=== PATIENT | male | born 1950 | race Caucasian/White ===

== ENCOUNTER 2021-07-25 19:55 | Inpatient (IN) | payer OTHER ==
[2021-07-25] MEDS ORDERED: SODIUM CHLORIDE 0.9% 500 ML INFUS.BAG IV ONE (20:21)
[2021-07-25] MEDS ORDERED: ACETAMINOPHEN 1000 MG/100 ML BAG IVPB ONE (20:53)
[2021-07-25 21:42] LABS: VENOUS BASE EXCESS -1.6 mmol/L (-2-2); VENOUS O2 SATURATION 68.7 % (70-80); VENOUS PCO2 44.6 mmHg (38-52); VENOUS PH 7.35 (7.310-7.410)
[2021-07-25 21:43] LABS: BASO % 0.5 % (0-2.0); EOS % 0.6 % (0-4.5); HEMATOCRIT 32.2 % (35.4-49); HEMOGLOBIN 10.2 GM/dL (11.7-16.9); LYMPH % 11.9 % (8-40); MCH 28.4 pg (25.7-33.7); MCHC 31.8 g/dl (32.0-35.9); MEAN CELL VOLUME 89.4 fl (80-96); MEAN PLT VOLUME 9.1 fl (7.5-11.1); MONO % 6.6 % (3.8-10.2); NEUT % 80.4 % (42.8-82.8); PLATELET COUNT 756 10^3/uL (134-434); RDW 14.5 % (11.9-15.9); WHITE BLOOD COUNT 16.8 K/mm3 (4.0-10.0)
[2021-07-25 21:49] LABS: INR 1.07 (0.83-1.09); PROTHROMBIN TIME (PATIENT) 12.3 SEC (9.7-13.0)
[2021-07-25 21:52] LABS: ACTIVATED PTT 26.8 SECONDS (25.2-36.5)
[2021-07-25] MEDS ORDERED: ACETAMINOPHEN INJECTION 100 ML IVPB ONE (21:56)
[2021-07-25 22:04] LABS: CHLORIDE 111 mmol/L (98-107); SODIUM 142 mmol/L (136-145)
[2021-07-25 22:05] LABS: ALBUMIN 2.2 g/dl (3.4-5.0)
[2021-07-25 22:06] LABS: CALCIUM 8.6 mg/dL (8.5-10.1)
[2021-07-25 22:07] LABS: CO2 26 mmol/L (21-32); MAGNESIUM 3.5 mg/dL (1.8-2.4)
[2021-07-25 22:10] LABS: CREATININE 2.8 mg/dL (0.55-1.3); PHOSPHOROUS 4.8 mg/dL (2.5-4.9); SGOT/AST 57 U/L (15-37); SGPT/ALT 138 U/L (13-61)
[2021-07-25 22:11] LABS: BILIRUBIN,TOTAL 0.3 mg/dL (0.2-1); TOT PROT 6.2 g/dl (6.4-8.2)
[2021-07-25 22:12] LABS: ALK PHOS 165 U/L (45-117)
[2021-07-25 22:36] LABS: ANION GAP 6 MMOL/L (8-16); BLOOD UREA NITROGEN 131.5 mg/dL (7-18); GLUCOSE,RANDOM 730 mg/dL (74-106)
[2021-07-25] MEDS ORDERED: INSULIN REGULAR HUMAN 100 UNITS/ML *VIAL SQ ONE (22:55)
[2021-07-25] MEDS ORDERED: ALBUTEROL SO4 0.083% IH SOL 2.5 MG/3 ML VIAL.NEB. NEB ONE ×2 (22:55→23:50)
[2021-07-25] MEDS ORDERED: SODIUM CHLORIDE 1,000 ML IV ONE (22:59)
[2021-07-25 23:02] LABS: EPI CELLS 23 /uL (0-25.1); HYALINE CASTS 1 /uL (0-3.1); URINE APPEARANCE CLEAR; URINE BACTERIA 17 /uL (0-1359); URINE BILIRUBIN NEGATIVE (NEGATIVE); URINE COLOR YELLOW; URINE GLUCOSE (UA) 3+ (NEGATIVE); URINE KETONE NEGATIVE (NEGATIVE); URINE LEUK ESTERASE NEGATIVE (NEGATIVE); URINE NITRITE NEGATIVE (NEGATIVE); URINE PROTEIN 1+ (NEGATIVE); URINE UROBILINOGEN 0.2 mg/dL (0.2-1.0)
[2021-07-25 23:24] LABS: URINE RBC 61 /uL (0-23.9); URINE WBC 99 /uL (0-25.8)
[2021-07-26] MEDS ORDERED: CALCIUM GLUCONATE 10% - 1,000 MG/10 ML VIAL IVPUSH ONE (01:00)
[2021-07-26] MEDS ORDERED: CALCIUM GLUCONATE 10% - 1,000 MG/10 ML VIAL ONE (01:08)
[2021-07-26 02:42] LABS: CHLORIDE 113 mmol/L (98-107); SODIUM 143 mmol/L (136-145)
[2021-07-26 02:43] LABS: CALCIUM 8.6 mg/dL (8.5-10.1)
[2021-07-26 02:44] LABS: CO2 24 mmol/L (21-32)
[2021-07-26 02:47] LABS: CREATININE 2.7 mg/dL (0.55-1.3)
[2021-07-26 03:15] LABS: ANION GAP 7 MMOL/L (8-16); BLOOD UREA NITROGEN 121.8 mg/dL (7-18); GLUCOSE,RANDOM 628 mg/dL (74-106)
[2021-07-26] MEDS ORDERED: INSULIN REGULAR HUMAN 100 UNITS/ML *VIAL SQ ONE (04:49)
[2021-07-26] MEDS ORDERED: VANCOMYCIN 1,000 MG in DEXTROSE 5%-WATER - 250 ML IVPB ONE (04:52)
[2021-07-26] MEDS ORDERED: SODIUM CHLORIDE 1,000 ML IV SCH (05:00)
[2021-07-26] MEDS ORDERED: PIPERACILLIN/TAZOB 3.375 GM 3.375 GM in DEXTROSE 5%-WATER - 50 ML IVPB ONE ×2 (05:02→09:00)
[2021-07-26] MEDS: INSULIN SLIDING SCALE (NOVOLOG) 1 VIAL SQ SCH ×6 (07:05→23:33)
[2021-07-26 07:35] LABS: BASO % 0.2 % (0-2.0); EOS % 0.5 % (0-4.5); HEMATOCRIT 28.9 % (35.4-49); HEMOGLOBIN 9.1 GM/dL (11.7-16.9); LYMPH % 12.4 % (8-40); MCH 28.6 pg (25.7-33.7); MCHC 31.4 g/dl (32.0-35.9); MEAN PLT VOLUME 9.1 fl (7.5-11.1); MONO % 4.9 % (3.8-10.2); PLATELET COUNT 747 10^3/uL (134-434); RBC 3.18 M/mm3 (4.00-5.60); RDW 14.4 % (11.9-15.9); WHITE BLOOD COUNT 17.1 K/mm3 (4.0-10.0)
[2021-07-26 07:52] LABS: CHLORIDE 112 mmol/L (98-107); SODIUM 145 mmol/L (136-145)
[2021-07-26 08:07] LABS: CREATININE 2.5 mg/dL (0.55-1.3)
[2021-07-26 08:08] LABS: ALBUMIN 2.3 g/dl (3.4-5.0); ANION GAP 8 MMOL/L (8-16); CO2 24 mmol/L (21-32); SGPT/ALT 116 U/L (13-61)
[2021-07-26 08:09] LABS: SGOT/AST 28 U/L (15-37)
[2021-07-26 08:10] LABS: ALK PHOS 148 U/L (45-117); BILIRUBIN,TOTAL 0.3 mg/dL (0.2-1); TOT PROT 6.1 g/dl (6.4-8.2)
[2021-07-26] MEDS ORDERED: INSULIN REGULAR HUMAN 100 UNITS/ML *VIAL IVPUSH ONE ×2 (08:15→09:15)
[2021-07-26] MEDS ORDERED: SODIUM CHLORIDE 0.9% 1000 ML INFUS.BAG IV ONE (08:15)
[2021-07-26] MEDS ORDERED: VANCOMYCIN/WATER FOR INJ (PEG) 1,000 MG/200 ML BAG IVPB ONE (08:30)
[2021-07-26] MEDS ORDERED: PIPERACILLIN/TAZOBACTAM 3.375 GM VIAL IVPB ONE (09:06)
[2021-07-26] MEDS ORDERED: DEXTROSE 5%-WATER - 50 ML IVPB ONE ×3 (09:06→21:06)
[2021-07-26 09:10] LABS: BLOOD UREA NITROGEN 115.2 mg/dL (7-18); GLUCOSE,RANDOM 574 mg/dL (74-106)
[2021-07-26] MEDS: amLODIPine BESYLATE 10 MG TABLET (FP) GT SCH (09:40)
[2021-07-26] MEDS: SODIUM ZIRCONIUM CYCLOSILICATE (LOKELMA) 5 GM PACKET PO SCH (09:40)
[2021-07-26] MEDS: levETIRAcetam 500 MG/5 ML ORAL SOLUTION (UNIT-DOSE CUPS) GT SCH ×2 (09:40→21:18)
[2021-07-26] MEDS: ASPIRIN 81 MG CHEWABLE TABLETS GT SCH (09:40)
[2021-07-26 10:51] LABS: CHLORIDE 117 mmol/L (98-107); SODIUM 149 mmol/L (136-145)
[2021-07-26 10:52] LABS: CALCIUM 8.8 mg/dL (8.5-10.1)
[2021-07-26 10:53] LABS: ANION GAP 9 MMOL/L (8-16); CO2 23 mmol/L (21-32)
[2021-07-26 10:56] LABS: CREATININE 2.5 mg/dL (0.55-1.3)
[2021-07-26] MEDS: PANTOPRAZOLE SODIUM 40 MG VIAL IVPUSH SCH (10:59)
[2021-07-26 11:06] LABS: BLOOD UREA NITROGEN 113.2 mg/dL (7-18); GLUCOSE,RANDOM 457 mg/dL (74-106)
[2021-07-26] MEDS: SODIUM CHLORIDE 1,000 ML IV SCH ×2 (12:01→17:41)
[2021-07-26] MEDS: INSULIN (LEVEMIR) 100 UNITS/ML UNITS SQ SCH ×2 (12:03→21:17)
[2021-07-26] MEDS: MUPIROCIN 2% TOPICAL OINTMENT FOR DECOLONIZATION NS SCH ×2 (13:06→21:18)
[2021-07-26] MEDS ORDERED: PIPERACILLIN/TAZOBACTAM 2.25 GM VIAL IVPB ONE ×2 (13:10→21:06)
[2021-07-26] MEDS: PIPERACILLIN/TAZOB 2.25 GM 2.25 GM in DEXTROSE 5%-WATER - 50 ML IVPB SCH ×2 (14:52→21:18)
[2021-07-26 15:13] LABS: CREATININE, URINE RANDOM 30.1 mg/dL (30-150)
[2021-07-26 20:39] LABS: BLOOD UREA NITROGEN 98.8 mg/dL (7-18)
[2021-07-26 20:42] LABS: CREATININE 2.1 mg/dL (0.55-1.3)
[2021-07-26] MEDS: CHLORHEXIDINE GLUCONATE 4% CLEANSER FOR DECOLONIZATION TP SCH (21:18)
[2021-07-26 22:09] LABS: CALCIUM 8.5 mg/dL (8.5-10.1)
[2021-07-26 22:10] LABS: ALBUMIN 2.1 g/dl (3.4-5.0); BLOOD UREA NITROGEN 94.8 mg/dL (7-18)
[2021-07-26 22:14] LABS: BILIRUBIN,TOTAL 0.2 mg/dL (0.2-1); TOT PROT 5.5 g/dl (6.4-8.2)
[2021-07-26 22:16] LABS: BILIRUBIN,TOTAL 0.7 mg/dL (0.2-1); TOT PROT 5.1 g/dl (6.4-8.2)
[2021-07-26 22:20] LABS: ALBUMIN 1.8 g/dl (3.4-5.0)
[2021-07-27] MEDS ORDERED: DEXTROSE 5%-WATER - 50 ML IVPB ONE ×4 (01:22→20:27)
[2021-07-27] MEDS ORDERED: PIPERACILLIN/TAZOBACTAM 2.25 GM VIAL IVPB ONE ×4 (01:22→20:26)
[2021-07-27] MEDS: PIPERACILLIN/TAZOB 2.25 GM 2.25 GM in DEXTROSE 5%-WATER - 50 ML IVPB SCH ×4 (02:05→20:32)
[2021-07-27] MEDS: INSULIN SLIDING SCALE (NOVOLOG) 1 VIAL SQ SCH ×5 (02:55→21:25)
[2021-07-27 06:55] LABS: BASO % 0.3 % (0-2.0); EOS % 2.2 % (0-4.5); HEMATOCRIT 24.7 % (35.4-49); HEMOGLOBIN 7.9 GM/dL (11.7-16.9); LYMPH % 14.8 % (8-40); MCH 28.6 pg (25.7-33.7); MCHC 32.1 g/dl (32.0-35.9); MEAN CELL VOLUME 89.2 fl (80-96); MEAN PLT VOLUME 8.9 fl (7.5-11.1); MONO % 4.8 % (3.8-10.2); NEUT % 77.9 % (42.8-82.8); PLATELET COUNT 540 10^3/uL (134-434); RBC 2.77 M/mm3 (4.00-5.60); RDW 13.7 % (11.9-15.9); WHITE BLOOD COUNT 14.4 K/mm3 (4.0-10.0)
[2021-07-27 07:01] LABS: PROTHROMBIN TIME (PATIENT) 11.5 SEC (9.7-13.0)
[2021-07-27 07:04] LABS: ACTIVATED PTT 23.8 SECONDS (25.2-36.5)
[2021-07-27 07:13] LABS: CALCIUM 8.6 mg/dL (8.5-10.1)
[2021-07-27 07:14] LABS: BLOOD UREA NITROGEN 86.9 mg/dL (7-18); MAGNESIUM 2.7 mg/dL (1.8-2.4)
[2021-07-27 07:16] LABS: CREATININE 1.8 mg/dL (0.55-1.3)
[2021-07-27 07:17] LABS: PHOSPHOROUS 4.3 mg/dL (2.5-4.9)
[2021-07-27 07:18] LABS: BILIRUBIN,TOTAL 0.2 mg/dL (0.2-1); TOT PROT 5.5 g/dl (6.4-8.2)
[2021-07-27] MEDS ORDERED: SODIUM CHLORIDE 0.45% 1,000 ML IV SCH (08:15)
[2021-07-27] MEDS: levETIRAcetam 500 MG/5 ML ORAL SOLUTION (UNIT-DOSE CUPS) GT SCH ×2 (09:30→21:22)
[2021-07-27] MEDS: amLODIPine BESYLATE 10 MG TABLET (FP) GT SCH (09:30)
[2021-07-27] MEDS: ASPIRIN 81 MG CHEWABLE TABLETS GT SCH (09:30)
[2021-07-27] MEDS: MUPIROCIN 2% TOPICAL OINTMENT FOR DECOLONIZATION NS SCH ×2 (09:30→21:22)
[2021-07-27] MEDS: SODIUM ZIRCONIUM CYCLOSILICATE (LOKELMA) 5 GM PACKET PO SCH (09:30)
[2021-07-27] MEDS: PANTOPRAZOLE SODIUM 40 MG VIAL IVPUSH SCH (09:30)
[2021-07-27] MEDS: SODIUM CHLORIDE 0.45% 1,000 ML IV SCH (13:53)
[2021-07-27] MEDS ORDERED: VANCOMYCIN/WATER FOR INJ (PEG) 1,000 MG/200 ML BAG IVPB ONE (15:36)
[2021-07-27] MEDS: CHLORHEXIDINE GLUCONATE 4% CLEANSER FOR DECOLONIZATION TP SCH (21:22)
[2021-07-27] MEDS: INSULIN (LEVEMIR) 100 UNITS/ML UNITS SQ SCH (21:25)
[2021-07-27 22:21] LABS: HEMATOCRIT 23.1 % (35.4-49); HEMOGLOBIN 7.4 GM/dL (11.7-16.9); MCH 28.2 pg (25.7-33.7); MCHC 32.2 g/dl (32.0-35.9); MEAN CELL VOLUME 87.7 fl (80-96); MEAN PLT VOLUME 8.5 fl (7.5-11.1); PLATELET COUNT 478 10^3/uL (134-434); RBC 2.64 M/mm3 (4.00-5.60); RDW 13.8 % (11.9-15.9); WHITE BLOOD COUNT 14.2 K/mm3 (4.0-10.0)
[2021-07-28] MEDS ORDERED: PIPERACILLIN/TAZOBACTAM 2.25 GM VIAL IVPB ONE ×2 (03:17→08:07)
[2021-07-28] MEDS ORDERED: DEXTROSE 5%-WATER - 50 ML IVPB ONE ×2 (03:17→08:08)
[2021-07-28] MEDS: PIPERACILLIN/TAZOB 2.25 GM 2.25 GM in DEXTROSE 5%-WATER - 50 ML IVPB SCH ×2 (03:20→08:17)
[2021-07-28] MEDS: INSULIN SLIDING SCALE (NOVOLOG) 1 VIAL SQ SCH ×4 (03:25→21:41)
[2021-07-28 07:19] LABS: BASO % 0.5 % (0-2.0); EOS % 3.8 % (0-4.5); LYMPH % 19.8 % (8-40); MCH 28.9 pg (25.7-33.7); MCHC 32.6 g/dl (32.0-35.9); MEAN CELL VOLUME 88.4 fl (80-96); MEAN PLT VOLUME 8.7 fl (7.5-11.1); MONO % 6.5 % (3.8-10.2); NEUT % 69.4 % (42.8-82.8); PLATELET COUNT 437 10^3/uL (134-434); RBC 2.38 M/mm3 (4.00-5.60); RDW 13.7 % (11.9-15.9)
[2021-07-28 07:20] LABS: HEMOGLOBIN 6.9 GM/dL (11.7-16.9)
[2021-07-28 07:42] LABS: CALCIUM 7.8 mg/dL (8.5-10.1)
[2021-07-28 07:43] LABS: ALBUMIN 1.8 g/dl (3.4-5.0); BLOOD UREA NITROGEN 62.6 mg/dL (7-18); MAGNESIUM 2.4 mg/dL (1.8-2.4)
[2021-07-28 07:46] LABS: PHOSPHOROUS 3.7 mg/dL (2.5-4.9)
[2021-07-28 07:47] LABS: BILIRUBIN,TOTAL 0.3 mg/dL (0.2-1); TOT PROT 4.8 g/dl (6.4-8.2)
[2021-07-28 08:03] LABS: CREATININE 1.8 mg/dL (0.55-1.3)
[2021-07-28] MEDS: PANTOPRAZOLE SODIUM 40 MG VIAL IVPUSH SCH (09:36)
[2021-07-28] MEDS: amLODIPine BESYLATE 10 MG TABLET (FP) GT SCH (09:37)
[2021-07-28] MEDS: levETIRAcetam 500 MG/5 ML ORAL SOLUTION (UNIT-DOSE CUPS) GT SCH ×2 (09:37→21:40)
[2021-07-28] MEDS: MUPIROCIN 2% TOPICAL OINTMENT FOR DECOLONIZATION NS SCH ×2 (09:37→21:40)
[2021-07-28] MEDS: ASPIRIN 81 MG CHEWABLE TABLETS GT SCH (09:37)
[2021-07-28] MEDS: SODIUM CHLORIDE 0.45% 1,000 ML IV SCH ×2 (14:00→18:11)
[2021-07-28] MEDS ORDERED: VANCOMYCIN/WATER FOR INJ (PEG) 1,000 MG/200 ML BAG IVPB SCH (19:00)
[2021-07-28] MEDS: CHLORHEXIDINE GLUCONATE 4% CLEANSER FOR DECOLONIZATION TP SCH (21:40)
[2021-07-28] MEDS: INSULIN (LEVEMIR) 100 UNITS/ML UNITS SQ SCH (21:40)
[2021-07-28] MEDS ORDERED: ACETAMINOPHEN 650 MG/20.3 ML ORAL SOLUTION (CUPS) GT ONE (23:17)
[2021-07-29] MEDS: SODIUM CHLORIDE 0.45% 1,000 ML IV SCH ×4 (03:10→18:39)
[2021-07-29] MEDS: INSULIN SLIDING SCALE (NOVOLOG) 1 VIAL SQ SCH ×4 (04:40→22:13)
[2021-07-29 07:53] LABS: BASO % 0.2 % (0-2.0); EOS % 3.1 % (0-4.5); LYMPH % 18.3 % (8-40); MCHC 33.2 g/dl (32.0-35.9); MEAN CELL VOLUME 84.3 fl (80-96); MEAN PLT VOLUME 8.9 fl (7.5-11.1); MONO % 6.7 % (3.8-10.2); NEUT % 71.7 % (42.8-82.8); PLATELET COUNT 440 10^3/uL (134-434); RBC 3.56 M/mm3 (4.00-5.60); RDW 14.8 % (11.9-15.9); WHITE BLOOD COUNT 11.6 K/mm3 (4.0-10.0)
[2021-07-29 08:15] LABS: CALCIUM 8.3 mg/dL (8.5-10.1)
[2021-07-29 08:16] LABS: BLOOD UREA NITROGEN 40.4 mg/dL (7-18)
[2021-07-29 08:19] LABS: CREATININE 1.3 mg/dL (0.55-1.3)
[2021-07-29 08:21] LABS: BILIRUBIN,TOTAL 0.3 mg/dL (0.2-1); TOT PROT 5.4 g/dl (6.4-8.2)
[2021-07-29] MEDS: ASPIRIN 81 MG CHEWABLE TABLETS GT SCH (09:49)
[2021-07-29] MEDS: PANTOPRAZOLE SODIUM 40 MG VIAL IVPUSH SCH (09:49)
[2021-07-29] MEDS: levETIRAcetam 500 MG/5 ML ORAL SOLUTION (UNIT-DOSE CUPS) GT SCH ×2 (09:49→22:12)
[2021-07-29] MEDS: amLODIPine BESYLATE 10 MG TABLET (FP) GT SCH (09:49)
[2021-07-29] MEDS: MUPIROCIN 2% TOPICAL OINTMENT FOR DECOLONIZATION NS SCH ×2 (10:20→22:12)
[2021-07-29] MEDS ORDERED: PNEUMOC 20-VAL CONJ-DIP CRM/PF 0.5 ML SYRINGE IM ONE (15:00)
[2021-07-29] MEDS ORDERED: FLU VACC QS2021-22(6MOS UP)/PF 60 MCG/0.5 ML SYRINGE IM ONE (15:00)
[2021-07-29] MEDS ORDERED: AMPICILLIN SODIUM 2 GM VIAL ONE ×2 (17:31→23:03)
[2021-07-29] MEDS ORDERED: SODIUM CHLORIDE 100 ML IVPB ONE ×2 (17:31→23:03)
[2021-07-29] MEDS: AMPICILLIN - 2 GM in SODIUM CHLORIDE 100 ML IVPB SCH ×2 (17:33→23:05)
[2021-07-29] MEDS ORDERED: LISINOPRIL 5 MG TABLET GT ONE (20:39)
[2021-07-29] MEDS: CHLORHEXIDINE GLUCONATE 4% CLEANSER FOR DECOLONIZATION TP SCH (22:12)
[2021-07-29] MEDS: INSULIN (LEVEMIR) 100 UNITS/ML UNITS SQ SCH (22:13)
[2021-07-30] MEDS: SODIUM CHLORIDE 0.45% 1,000 ML IV SCH ×2 (03:41→13:00)
[2021-07-30] MEDS: INSULIN SLIDING SCALE (NOVOLOG) 1 VIAL SQ SCH ×4 (03:45→23:27)
[2021-07-30] MEDS ORDERED: SODIUM CHLORIDE 100 ML IVPB ONE ×4 (06:04→23:07)
[2021-07-30] MEDS ORDERED: AMPICILLIN SODIUM 2 GM VIAL ONE ×4 (06:04→23:07)
[2021-07-30] MEDS: AMPICILLIN - 2 GM in SODIUM CHLORIDE 100 ML IVPB SCH ×4 (06:06→23:27)
[2021-07-30] MEDS: amLODIPine BESYLATE 10 MG TABLET (FP) GT SCH (10:48)
[2021-07-30] MEDS: PANTOPRAZOLE SODIUM 40 MG VIAL IVPUSH SCH (10:48)
[2021-07-30] MEDS: levETIRAcetam 500 MG/5 ML ORAL SOLUTION (UNIT-DOSE CUPS) GT SCH ×2 (10:48→22:07)
[2021-07-30] MEDS: ASPIRIN 81 MG CHEWABLE TABLETS GT SCH (10:48)
[2021-07-30] MEDS: MUPIROCIN 2% TOPICAL OINTMENT FOR DECOLONIZATION NS SCH ×2 (10:48→22:07)
[2021-07-30 12:32] VITALS: BMI 21.8
[2021-07-30] MEDS: CHLORHEXIDINE GLUCONATE 4% CLEANSER FOR DECOLONIZATION TP SCH (22:07)
[2021-07-30] MEDS: INSULIN (LEVEMIR) 100 UNITS/ML UNITS SQ SCH (23:26)
[2021-07-31] MEDS: INSULIN SLIDING SCALE (NOVOLOG) 1 VIAL SQ SCH ×4 (04:36→22:37)
[2021-07-31] MEDS ORDERED: AMPICILLIN SODIUM 2 GM VIAL ONE ×4 (05:32→22:24)
[2021-07-31] MEDS ORDERED: SODIUM CHLORIDE 100 ML IVPB ONE ×4 (05:33→22:25)
[2021-07-31] MEDS: AMPICILLIN - 2 GM in SODIUM CHLORIDE 100 ML IVPB SCH ×3 (05:34→17:01)
[2021-07-31 07:33] LABS: BASO % 0.1 % (0-2.0); EOS % 2.3 % (0-4.5); HEMATOCRIT 28.2 % (35.4-49); HEMOGLOBIN 9.5 GM/dL (11.7-16.9); LYMPH % 16.5 % (8-40); MCH 28.2 pg (25.7-33.7); MCHC 33.5 g/dl (32.0-35.9); MEAN PLT VOLUME 8.6 fl (7.5-11.1); MONO % 8.7 % (3.8-10.2); NEUT % 72.4 % (42.8-82.8); PLATELET COUNT 330 10^3/uL (134-434); RBC 3.36 M/mm3 (4.00-5.60); RDW 14.5 % (11.9-15.9); WHITE BLOOD COUNT 15.3 K/mm3 (4.0-10.0)
[2021-07-31 08:00] LABS: ALBUMIN 1.8 g/dl (3.4-5.0); BLOOD UREA NITROGEN 26.8 mg/dL (7-18)
[2021-07-31 08:03] LABS: CREATININE 1.3 mg/dL (0.55-1.3)
[2021-07-31 08:05] LABS: BILIRUBIN,TOTAL 0.8 mg/dL (0.2-1); TOT PROT 5.1 g/dl (6.4-8.2)
[2021-07-31] MEDS: AMINO ACIDS/PROTEIN HYDROLYS 30 ML LIQUID.PKT PO SCH (08:35)
[2021-07-31] MEDS: MUPIROCIN 2% TOPICAL OINTMENT FOR DECOLONIZATION NS SCH (09:26)
[2021-07-31] MEDS: levETIRAcetam 500 MG/5 ML ORAL SOLUTION (UNIT-DOSE CUPS) GT SCH ×2 (09:26→22:36)
[2021-07-31] MEDS: ASPIRIN 81 MG CHEWABLE TABLETS GT SCH (09:26)
[2021-07-31] MEDS: PANTOPRAZOLE SODIUM 40 MG VIAL IVPUSH SCH (09:27)
[2021-07-31] MEDS: amLODIPine BESYLATE 10 MG TABLET (FP) GT SCH (09:48)
[2021-07-31] MEDS: SODIUM CHLORIDE 0.45% 1,000 ML IV SCH ×2 (13:32→16:59)
[2021-07-31] MEDS ORDERED: INSULIN (LEVEMIR) 100 UNITS/ML UNITS SQ SCH (22:00)
[2021-08-01] MEDS: AMPICILLIN - 2 GM in SODIUM CHLORIDE 100 ML IVPB SCH ×5 (00:05→23:49)
[2021-08-01] MEDS: SODIUM CHLORIDE 0.45% 1,000 ML IV SCH ×2 (03:24→17:18)
[2021-08-01] MEDS ORDERED: SODIUM CHLORIDE 100 ML IVPB ONE ×4 (04:50→23:15)
[2021-08-01] MEDS ORDERED: AMPICILLIN SODIUM 2 GM VIAL ONE ×4 (04:50→23:15)
[2021-08-01] MEDS: INSULIN SLIDING SCALE (NOVOLOG) 1 VIAL SQ SCH ×4 (07:22→21:43)
[2021-08-01] MEDS: AMINO ACIDS/PROTEIN HYDROLYS 30 ML LIQUID.PKT PO SCH (09:51)
[2021-08-01] MEDS: PANTOPRAZOLE SODIUM 40 MG VIAL IVPUSH SCH (09:52)
[2021-08-01] MEDS: ASPIRIN 81 MG CHEWABLE TABLETS GT SCH (09:52)
[2021-08-01] MEDS: levETIRAcetam 500 MG/5 ML ORAL SOLUTION (UNIT-DOSE CUPS) GT SCH ×2 (09:52→21:42)
[2021-08-01] MEDS: amLODIPine BESYLATE 10 MG TABLET (FP) GT SCH (09:52)
[2021-08-01 09:55] LABS: BASO % 0.3 % (0-2.0); EOS % 3.5 % (0-4.5); HEMATOCRIT 24.1 % (35.4-49); HEMOGLOBIN 7.8 GM/dL (11.7-16.9); LYMPH % 17.2 % (8-40); MCH 27.7 pg (25.7-33.7); MCHC 32.4 g/dl (32.0-35.9); MEAN CELL VOLUME 85.5 fl (80-96); MEAN PLT VOLUME 8.9 fl (7.5-11.1); PLATELET COUNT 264 10^3/uL (134-434); RBC 2.82 M/mm3 (4.00-5.60); WHITE BLOOD COUNT 11.6 K/mm3 (4.0-10.0)
[2021-08-01 10:20] LABS: CALCIUM 8.1 mg/dL (8.5-10.1)
[2021-08-01 10:21] LABS: ALBUMIN 1.7 g/dl (3.4-5.0); BLOOD UREA NITROGEN 36.2 mg/dL (7-18)
[2021-08-01 10:24] LABS: CREATININE 1.4 mg/dL (0.55-1.3)
[2021-08-01 10:26] LABS: BILIRUBIN,TOTAL 0.3 mg/dL (0.2-1); TOT PROT 4.7 g/dl (6.4-8.2)
[2021-08-01] MEDS: ACETAMINOPHEN 650 MG/20.3 ML ORAL SOLUTION (CUPS) PEG PRN (20:03)
[2021-08-01] MEDS: INSULIN (LEVEMIR) 100 UNITS/ML UNITS SQ SCH (21:42)
[2021-08-02] MEDS ORDERED: AMPICILLIN SODIUM 2 GM VIAL ONE ×4 (05:23→20:48)
[2021-08-02] MEDS ORDERED: SODIUM CHLORIDE 100 ML IVPB ONE ×4 (05:23→20:48)
[2021-08-02] MEDS: AMPICILLIN - 2 GM in SODIUM CHLORIDE 100 ML IVPB SCH ×3 (05:57→17:18)
[2021-08-02] MEDS: INSULIN (LEVEMIR) 100 UNITS/ML UNITS SQ SCH ×2 (06:17→21:35)
[2021-08-02] MEDS: INSULIN SLIDING SCALE (NOVOLOG) 1 VIAL SQ SCH ×4 (06:20→21:35)
[2021-08-02] MEDS: AMINO ACIDS/PROTEIN HYDROLYS 30 ML LIQUID.PKT PO SCH (08:54)
[2021-08-02] MEDS: PANTOPRAZOLE SODIUM 40 MG VIAL IVPUSH SCH (09:01)
[2021-08-02] MEDS: amLODIPine BESYLATE 10 MG TABLET (FP) GT SCH (09:02)
[2021-08-02] MEDS: levETIRAcetam 500 MG/5 ML ORAL SOLUTION (UNIT-DOSE CUPS) GT SCH ×2 (09:02→21:31)
[2021-08-02] MEDS: ASPIRIN 81 MG CHEWABLE TABLETS GT SCH (09:02)
[2021-08-02] MEDS: SODIUM CHLORIDE 0.45% 1,000 ML IV SCH ×2 (11:26→17:17)
[2021-08-02 13:20] LABS: BASO % 0.3 % (0-2.0); EOS % 2.6 % (0-4.5); HEMATOCRIT 36.2 % (35.4-49); HEMOGLOBIN 11.8 GM/dL (11.7-16.9); LYMPH % 15.4 % (8-40); MCH 27.7 pg (25.7-33.7); MCHC 32.6 g/dl (32.0-35.9); MEAN CELL VOLUME 84.9 fl (80-96); MEAN PLT VOLUME 8.5 fl (7.5-11.1); MONO % 7.1 % (3.8-10.2); NEUT % 74.6 % (42.8-82.8); PLATELET COUNT 344 10^3/uL (134-434); RBC 4.26 M/mm3 (4.00-5.60); RDW 14.9 % (11.9-15.9); WHITE BLOOD COUNT 13.1 K/mm3 (4.0-10.0)
[2021-08-02 13:57] LABS: CALCIUM 8.2 mg/dL (8.5-10.1)
[2021-08-02 13:59] LABS: BLOOD UREA NITROGEN 38.2 mg/dL (7-18)
[2021-08-02 14:00] LABS: ALBUMIN 1.9 g/dl (3.4-5.0)
[2021-08-02 14:04] LABS: CREATININE 1.3 mg/dL (0.55-1.3)
[2021-08-02 14:05] LABS: BILIRUBIN,TOTAL 0.5 mg/dL (0.2-1); TOT PROT 5.4 g/dl (6.4-8.2)
[2021-08-03] MEDS: AMPICILLIN - 2 GM in SODIUM CHLORIDE 100 ML IVPB SCH ×5 (00:42→22:50)
[2021-08-03] MEDS ORDERED: AMPICILLIN SODIUM 2 GM VIAL ONE ×4 (05:43→22:14)
[2021-08-03] MEDS ORDERED: SODIUM CHLORIDE 100 ML IVPB ONE ×4 (05:43→22:14)
[2021-08-03] MEDS: INSULIN (LEVEMIR) 100 UNITS/ML UNITS SQ SCH ×2 (06:02→22:13)
[2021-08-03] MEDS: INSULIN SLIDING SCALE (NOVOLOG) 1 VIAL SQ SCH ×4 (06:43→22:12)
[2021-08-03] MEDS: amLODIPine BESYLATE 10 MG TABLET (FP) GT SCH (10:37)
[2021-08-03] MEDS: ASPIRIN 81 MG CHEWABLE TABLETS GT SCH (10:37)
[2021-08-03] MEDS: AMINO ACIDS/PROTEIN HYDROLYS 30 ML LIQUID.PKT PO SCH (10:37)
[2021-08-03] MEDS: levETIRAcetam 500 MG/5 ML ORAL SOLUTION (UNIT-DOSE CUPS) GT SCH ×2 (10:37→22:09)
[2021-08-03] MEDS: PANTOPRAZOLE SODIUM 40 MG VIAL IVPUSH SCH (10:48)
[2021-08-03] MEDS ORDERED: INSULIN SLIDING SCALE (NOVOLOG) 1 VIAL SQ ONE (11:03)
[2021-08-03 11:55] LABS: BASO % 0.3 % (0-2.0); HEMATOCRIT 29.2 % (35.4-49); LYMPH % 14.9 % (8-40); MCH 28.9 pg (25.7-33.7); MCHC 34.4 g/dl (32.0-35.9); MEAN PLT VOLUME 8.2 fl (7.5-11.1); MONO % 9.6 % (3.8-10.2); NEUT % 73.2 % (42.8-82.8); PLATELET COUNT 319 10^3/uL (134-434); RBC 3.48 M/mm3 (4.00-5.60); RDW 14.4 % (11.9-15.9); WHITE BLOOD COUNT 10.8 K/mm3 (4.0-10.0)
[2021-08-03 12:19] LABS: CALCIUM 8.1 mg/dL (8.5-10.1)
[2021-08-03 12:20] LABS: ALBUMIN 1.8 g/dl (3.4-5.0); BLOOD UREA NITROGEN 40.2 mg/dL (7-18)
[2021-08-03 12:23] LABS: CREATININE 1.4 mg/dL (0.55-1.3)
[2021-08-03 12:24] LABS: BILIRUBIN,TOTAL 0.2 mg/dL (0.2-1)
[2021-08-03 12:25] LABS: TOT PROT 5.1 g/dl (6.4-8.2)
[2021-08-03] MEDS: SODIUM CHLORIDE 0.45% 1,000 ML IV SCH (16:25)
[2021-08-04] MEDS ORDERED: SODIUM CHLORIDE 100 ML IVPB ONE ×4 (04:01→22:21)
[2021-08-04] MEDS ORDERED: AMPICILLIN SODIUM 2 GM VIAL ONE ×4 (04:01→22:21)
[2021-08-04] MEDS: AMPICILLIN - 2 GM in SODIUM CHLORIDE 100 ML IVPB SCH ×4 (05:25→22:37)
[2021-08-04] MEDS: INSULIN SLIDING SCALE (NOVOLOG) 1 VIAL SQ SCH ×4 (06:17→22:37)
[2021-08-04] MEDS: INSULIN (LEVEMIR) 100 UNITS/ML UNITS SQ SCH ×2 (06:17→22:48)
[2021-08-04] MEDS: AMINO ACIDS/PROTEIN HYDROLYS 30 ML LIQUID.PKT PO SCH (08:22)
[2021-08-04] MEDS: PANTOPRAZOLE SODIUM 40 MG VIAL IVPUSH SCH (09:34)
[2021-08-04] MEDS: levETIRAcetam 500 MG/5 ML ORAL SOLUTION (UNIT-DOSE CUPS) GT SCH ×2 (09:34→22:41)
[2021-08-04] MEDS: ASPIRIN 81 MG CHEWABLE TABLETS GT SCH (09:34)
[2021-08-04] MEDS: amLODIPine BESYLATE 10 MG TABLET (FP) GT SCH (09:34)
[2021-08-04] MEDS: SODIUM CHLORIDE 0.45% 1,000 ML IV SCH ×2 (09:36→16:17)
[2021-08-04 10:19] LABS: ALBUMIN 1.6 g/dl (3.4-5.0); BLOOD UREA NITROGEN 43.5 mg/dL (7-18)
[2021-08-04 10:22] LABS: CREATININE 1.4 mg/dL (0.55-1.3)
[2021-08-04 10:24] LABS: BILIRUBIN,TOTAL 0.2 mg/dL (0.2-1); TOT PROT 4.6 g/dl (6.4-8.2)
[2021-08-04] MEDS: ACETAMINOPHEN 650 MG/20.3 ML ORAL SOLUTION (CUPS) PEG PRN (16:17)
[2021-08-05] MEDS: SODIUM CHLORIDE 0.45% 1,000 ML IV SCH (00:11)
[2021-08-05] MEDS ORDERED: SODIUM CHLORIDE 100 ML IVPB ONE ×4 (05:11→22:27)
[2021-08-05] MEDS ORDERED: AMPICILLIN SODIUM 2 GM VIAL ONE ×4 (05:11→22:27)
[2021-08-05] MEDS: AMPICILLIN - 2 GM in SODIUM CHLORIDE 100 ML IVPB SCH ×4 (05:16→22:34)
[2021-08-05] MEDS: INSULIN (LEVEMIR) 100 UNITS/ML UNITS SQ SCH ×2 (06:59→22:33)
[2021-08-05] MEDS: INSULIN SLIDING SCALE (NOVOLOG) 1 VIAL SQ SCH ×4 (06:59→22:31)
[2021-08-05] MEDS: AMINO ACIDS/PROTEIN HYDROLYS 30 ML LIQUID.PKT PO SCH (07:55)
[2021-08-05 10:12] LABS: ALBUMIN 1.7 g/dl (3.4-5.0); BLOOD UREA NITROGEN 45.7 mg/dL (7-18)
[2021-08-05 10:15] LABS: CREATININE 1.5 mg/dL (0.55-1.3)
[2021-08-05 10:16] LABS: TOT PROT 5.2 g/dl (6.4-8.2)
[2021-08-05 10:17] LABS: BILIRUBIN,TOTAL 0.2 mg/dL (0.2-1)
[2021-08-05] MEDS: PANTOPRAZOLE SODIUM 40 MG VIAL IVPUSH SCH (10:30)
[2021-08-05] MEDS: amLODIPine BESYLATE 10 MG TABLET (FP) GT SCH (10:30)
[2021-08-05] MEDS: levETIRAcetam 500 MG/5 ML ORAL SOLUTION (UNIT-DOSE CUPS) GT SCH ×2 (10:30→22:29)
[2021-08-05] MEDS: ASPIRIN 81 MG CHEWABLE TABLETS GT SCH (10:30)
[2021-08-06] MEDS ORDERED: AMPICILLIN SODIUM 2 GM VIAL ONE (04:29)
[2021-08-06] MEDS ORDERED: SODIUM CHLORIDE 100 ML IVPB ONE (04:29)
[2021-08-06] MEDS: AMPICILLIN - 2 GM in SODIUM CHLORIDE 100 ML IVPB SCH (04:32)
[2021-08-06] MEDS: INSULIN (LEVEMIR) 100 UNITS/ML UNITS SQ SCH ×2 (06:43→23:02)
[2021-08-06] MEDS: INSULIN SLIDING SCALE (NOVOLOG) 1 VIAL SQ SCH ×4 (06:44→23:01)
[2021-08-06 10:02] LABS: BASO % 0.1 % (0-2.0); EOS % 1.1 % (0-4.5); HEMATOCRIT 27.2 % (35.4-49); HEMOGLOBIN 9.1 GM/dL (11.7-16.9); LYMPH % 10.7 % (8-40); MCH 28.6 pg (25.7-33.7); MCHC 33.5 g/dl (32.0-35.9); MEAN CELL VOLUME 85.4 fl (80-96); MONO % 6.4 % (3.8-10.2); NEUT % 81.7 % (42.8-82.8); PLATELET COUNT 323 10^3/uL (134-434); RBC 3.19 M/mm3 (4.00-5.60); RDW 14.7 % (11.9-15.9); WHITE BLOOD COUNT 14.9 K/mm3 (4.0-10.0)
[2021-08-06] MEDS: AMINO ACIDS/PROTEIN HYDROLYS 30 ML LIQUID.PKT PO SCH (10:30)
[2021-08-06] MEDS: amLODIPine BESYLATE 10 MG TABLET (FP) GT SCH (10:30)
[2021-08-06] MEDS: PANTOPRAZOLE SODIUM 40 MG VIAL IVPUSH SCH (10:30)
[2021-08-06] MEDS: ASPIRIN 81 MG CHEWABLE TABLETS GT SCH (10:30)
[2021-08-06] MEDS: levETIRAcetam 500 MG/5 ML ORAL SOLUTION (UNIT-DOSE CUPS) GT SCH ×2 (10:30→23:01)
[2021-08-07] MEDS: INSULIN SLIDING SCALE (NOVOLOG) 1 VIAL SQ SCH ×3 (06:23→17:36)
[2021-08-07] MEDS: INSULIN (LEVEMIR) 100 UNITS/ML UNITS SQ SCH (06:24)
[2021-08-07] MEDS ORDERED: PANTOPRAZOLE 40 MG TABLET PO SCH ×2 (10:00)
[2021-08-07 11:19] LABS: BASO % 0.4 % (0-2.0); EOS % 3.1 % (0-4.5); HEMATOCRIT 24.9 % (35.4-49); HEMOGLOBIN 8.4 GM/dL (11.7-16.9); LYMPH % 15.5 % (8-40); MCH 28.4 pg (25.7-33.7); MEAN CELL VOLUME 83.7 fl (80-96); MONO % 7.9 % (3.8-10.2); NEUT % 73.1 % (42.8-82.8); PLATELET COUNT 319 10^3/uL (134-434); RBC 2.97 M/mm3 (4.00-5.60); RDW 14.7 % (11.9-15.9); WHITE BLOOD COUNT 11.7 K/mm3 (4.0-10.0)
[2021-08-07] MEDS: AMINO ACIDS/PROTEIN HYDROLYS 30 ML LIQUID.PKT PO SCH (11:36)
[2021-08-07] MEDS: amLODIPine BESYLATE 10 MG TABLET (FP) GT SCH (11:37)
[2021-08-07] MEDS: ASPIRIN 81 MG CHEWABLE TABLETS GT SCH (11:37)
[2021-08-07] MEDS: levETIRAcetam 500 MG/5 ML ORAL SOLUTION (UNIT-DOSE CUPS) GT SCH (11:37)
[2021-08-07 11:40] LABS: CALCIUM 8.3 mg/dL (8.5-10.1)
[2021-08-07 11:41] LABS: ALBUMIN 1.7 g/dl (3.4-5.0); BLOOD UREA NITROGEN 46.8 mg/dL (7-18)
[2021-08-07 11:50] LABS: BILIRUBIN,TOTAL 0.1 mg/dL (0.2-1); CREATININE 1.4 mg/dL (0.55-1.3); TOT PROT 5.1 g/dl (6.4-8.2)
[2021-08-07] MEDS ORDERED: PANTOPRAZOLE SOD 40 MG SUSPENSION PACKET PO SCH (13:15)
[2021-08-07] MEDS ORDERED: FAMOTIDINE 40 MG/5 ML ORAL SUSPENSION PO SCH (14:00)
[2021-08-07] MEDS: FAMOTIDINE 40 MG/5 ML ORAL SUSPENSION GT SCH (15:46)
[2021-08-08] MEDS: levETIRAcetam 500 MG/5 ML ORAL SOLUTION (UNIT-DOSE CUPS) GT SCH ×2 (00:50→09:52)
[2021-08-08] MEDS: INSULIN SLIDING SCALE (NOVOLOG) 1 VIAL SQ SCH ×4 (00:50→16:11)
[2021-08-08] MEDS: INSULIN (LEVEMIR) 100 UNITS/ML UNITS SQ SCH ×2 (00:51→06:25)
[2021-08-08] MEDS: FAMOTIDINE 40 MG/5 ML ORAL SUSPENSION GT SCH ×2 (00:52→09:53)
[2021-08-08 08:59] LABS: HEMATOCRIT 22.6 % (35.4-49); HEMOGLOBIN 7.9 GM/dL (11.7-16.9); MCH 29.7 pg (25.7-33.7); MCHC 34.7 g/dl (32.0-35.9); MEAN CELL VOLUME 85.6 fl (80-96); PLATELET COUNT 325 10^3/uL (134-434); RBC 2.65 M/mm3 (4.00-5.60); RDW 14.8 % (11.9-15.9); WHITE BLOOD COUNT 8.5 K/mm3 (4.0-10.0)
[2021-08-08 09:14] LABS: CALCIUM 8.1 mg/dL (8.5-10.1)
[2021-08-08 09:18] LABS: CREATININE 1.3 mg/dL (0.55-1.3)
[2021-08-08] MEDS: AMINO ACIDS/PROTEIN HYDROLYS 30 ML LIQUID.PKT PO SCH (09:52)
[2021-08-08] MEDS: amLODIPine BESYLATE 10 MG TABLET (FP) GT SCH (09:52)
[2021-08-09 00:57] VITALS: BP 154/82; PULSE 94; TEMP 97.8
== END 2021-08-08 22:30 | DRG 870 ==
LOC: JER 19:55 → JERBED 07-26 00:08 → JICU 07-26 05:03 → J5S 07-31 16:30
PROVIDERS: ADMIT Internal Medicine; ATTEND Family Medicine
PROC: 5A1955Z Respiratory Ventilation, Greater than 96 Consecutive Hours (ICD-10-PCS; principal; 2021-07-26)
PROC: 05HB33Z Insertion of Infusion Device into Right Basilic Vein, Percutaneous Approach (ICD-10-PCS; 2021-07-26)
PROC: B54MZZA Ultrasonography of Right Upper Extremity Veins, Guidance (ICD-10-PCS; 2021-07-26)
DX: A41.89 Other specified sepsis (principal); E11.00 Type 2 diabetes mellitus with hyperosmolarity without nonketotic hyperglycemic-hyperosmolar coma (NKHHC); J18.9 Pneumonia, unspecified organism; N17.9 Acute kidney failure, unspecified; J96.11 Chronic respiratory failure with hypoxia; J96.12 Chronic respiratory failure with hypercapnia; G93.1 Anoxic brain damage, not elsewhere classified; E87.0 Hyperosmolality and hypernatremia; E11.65 Type 2 diabetes mellitus with hyperglycemia; K21.9 Gastro-esophageal reflux disease without esophagitis; E78.5 Hyperlipidemia, unspecified; I12.9 Hypertensive chronic kidney disease with stage 1 through stage 4 chronic kidney disease, or unspecified chronic kidney disease; E11.22 Type 2 diabetes mellitus with diabetic chronic kidney disease; N18.9 Chronic kidney disease, unspecified; D50.9 Iron deficiency anemia, unspecified; E87.5 Hyperkalemia; N31.9 Neuromuscular dysfunction of bladder, unspecified; L89.152 Pressure ulcer of sacral region, stage 2; B95.2 Enterococcus as the cause of diseases classified elsewhere; Z93.0 Tracheostomy status; Z87.820 Personal history of traumatic brain injury; Z99.81 Dependence on supplemental oxygen
CPT/HCPCS: 0241U-QW; 36415; 36430; 71045-TC-FY; 74176-TC; 76775-TC; 80048; 80053; 80177; 81003; 82010; 82272; 82550; 82553; 82570; 82728; 82803; 82962; 83036; 83540; 83550; 83605; 83735; 84100; 84156; 84300; 84439; 84443; 84484; 84540; 85025; 85027; 85610; 85730; 86850; 86900; 86901; 86922; 87040; 87086; 87186; 87899; 90677; 90686; 93005; 93010; 93306-TC; 94002; 99285-25; C9803-CS; G0008; G0480; P9058; U0003; U0005

== ENCOUNTER 2021-08-30 13:58 | Inpatient (IN) | payer OTHER ==
[2021-08-30] MEDS ORDERED: SODIUM CHLORIDE 0.9% 500 ML INFUS.BAG IV ONE (14:36)
[2021-08-30] MEDS ORDERED: ACETAMINOPHEN 1000 MG/100 ML BAG IVPB ONE (14:37)
[2021-08-30] MEDS ORDERED: PIPERACILLIN/TAZOB 4.5 GM 4.5 GM in DEXTROSE 5%-WATER 100 ML IVPB ONE (15:16)
[2021-08-30] MEDS ORDERED: VANCOMYCIN 1 GM in D5W (PRE-DOCKED) 1,000 MG/250 ML IVPB ONE (15:16)
[2021-08-30 15:29] LABS: VENOUS BASE EXCESS -2.7 mmol/L (-2-2); VENOUS O2 SATURATION 42.7 % (70-80); VENOUS PCO2 38.3 mmHg (38-52); VENOUS PH 7.381 (7.310-7.410)
[2021-08-30 15:31] LABS: HEMATOCRIT 22.6 % (35.4-49); HEMOGLOBIN 7.5 GM/dL (11.7-16.9); MCH 27.2 pg (25.7-33.7); MCHC 33.2 g/dl (32.0-35.9); MEAN CELL VOLUME 81.8 fl (80-96); MEAN PLT VOLUME 7.7 fl (7.5-11.1); PLATELET COUNT 764 10^3/uL (134-434); RBC 2.76 M/mm3 (4.00-5.60); WHITE BLOOD COUNT 25.3 K/mm3 (4.0-10.0)
[2021-08-30 15:42] LABS: INR 1.18 (0.83-1.09); PROTHROMBIN TIME (PATIENT) 13.6 SEC (9.7-13.0)
[2021-08-30 15:42] LABS: EPI CELLS >36 /uL (0-25.1); HYALINE CASTS 4 /uL (0-3.1); URINE APPEARANCE TURBID; URINE BILIRUBIN 3+ (NEGATIVE); URINE COLOR RED; URINE GLUCOSE (UA) TRACE (NEGATIVE); URINE KETONE NEGATIVE (NEGATIVE); URINE LEUK ESTERASE 3+ (NEGATIVE); URINE NITRITE POSITIVE (NEGATIVE); URINE PROTEIN 2+ (NEGATIVE); URINE RBC 78 /uL (0-23.9); URINE UROBILINOGEN 0.2 mg/dL (0.2-1.0); URINE WBC 12 /uL (0-25.8)
[2021-08-30 15:45] LABS: ACTIVATED PTT 24.6 SECONDS (25.2-36.5)
[2021-08-30 15:53] LABS: CHLORIDE 83 mmol/L (98-107); SODIUM 122 mmol/L (136-145)
[2021-08-30 15:55] LABS: CALCIUM 7.7 mg/dL (8.5-10.1); GLUCOSE,RANDOM 329 mg/dL (74-106)
[2021-08-30 15:57] LABS: ALBUMIN 1.5 g/dl (3.4-5.0); ANION GAP 16 MMOL/L (8-16); CO2 23 mmol/L (21-32)
[2021-08-30 15:59] LABS: CREATININE 4.8 mg/dL (0.55-1.3); SGOT/AST 18 U/L (15-37); SGPT/ALT 38 U/L (13-61)
[2021-08-30 16:00] LABS: TOT PROT 5.8 g/dl (6.4-8.2)
[2021-08-30 16:01] LABS: ALK PHOS 203 U/L (45-117); BILIRUBIN,TOTAL 0.2 mg/dL (0.2-1)
[2021-08-30 16:04] LABS: ANISOCYTOSIS 0; MACROCYTOSIS 0
[2021-08-30] MEDS ORDERED: PIPERACILLIN/TAZOB 4.5 GM 4.5 GM/100 ML BAG IVPB ONE (16:04)
[2021-08-30] MEDS ORDERED: VANCOMYCIN 1 GRAM (PRE-DOCKED) 1,000 MG/250 ML BAG IVPB ONE (16:04)
[2021-08-30] MEDS ORDERED: ACETAMINOPHEN INJECTION 100 ML IVPB ONE (16:04)
[2021-08-30 16:07] LABS: BLOOD UREA NITROGEN 137.3 mg/dL (7-18)
[2021-08-30 19:42] LABS: PH,URINE 6.5 (5.0-8.0)
[2021-08-30 19:43] LABS: URINE BACTERIA 255.6 /uL (0-1359)
[2021-08-30 23:31] LABS: HEMATOCRIT 21.8 % (35.4-49); HEMOGLOBIN 7.4 GM/dL (11.7-16.9); MCH 27.6 pg (25.7-33.7); MCHC 33.9 g/dl (32.0-35.9); MEAN CELL VOLUME 81.4 fl (80-96); MEAN PLT VOLUME 6.9 fl (7.5-11.1); PLATELET COUNT 612 10^3/uL (134-434); RBC 2.68 M/mm3 (4.00-5.60); RDW 15.6 % (11.9-15.9); WHITE BLOOD COUNT 22.7 K/mm3 (4.0-10.0)
[2021-08-31 00:15] LABS: CHLORIDE 87 mmol/L (98-107); SODIUM 126 mmol/L (136-145)
[2021-08-31 00:16] LABS: CALCIUM 7.6 mg/dL (8.5-10.1)
[2021-08-31 00:18] LABS: ANION GAP 15 MMOL/L (8-16); CO2 24 mmol/L (21-32); GLUCOSE,RANDOM 218 mg/dL (74-106)
[2021-08-31 00:20] LABS: CREATININE 4.3 mg/dL (0.55-1.3)
[2021-08-31 00:26] LABS: BLOOD UREA NITROGEN 137.3 mg/dL (7-18)
[2021-08-31] MEDS ORDERED: SODIUM CHLORIDE 1,000 ML IV SCH ×3 (00:45→13:00)
[2021-08-31 01:34] LABS: ANISOCYTOSIS 0; MACROCYTOSIS 0
[2021-08-31] MEDS ORDERED: PIPERACILLIN/TAZOB 2.25 GM 2.25 GM/50 ML BAG IVPB ONE ×3 (02:48→18:09)
[2021-08-31] MEDS: PIPERACILLIN/TAZOB 2.25 GM 2.25 GM in DEXTROSE 5%-WATER - 50 ML IVPB SCH ×5 (03:20→18:33)
[2021-08-31] MEDS: INSULIN SLIDING SCALE (NOVOLOG) 1 VIAL SQ SCH ×3 (07:45→18:08)
[2021-08-31] MEDS ORDERED: amLODIPine BESYLATE 10 MG TABLET (FP) ONE (09:20)
[2021-08-31] MEDS ORDERED: ZINC SULFATE 220 MG CAPSULE (FP) ONE (09:20)
[2021-08-31] MEDS ORDERED: ASPIRIN 81 MG CHEWABLE TABLETS ONE (09:21)
[2021-08-31] MEDS ORDERED: MULTIVIT INJ. ADULT COMBO WITH VIT K 1 COMBO 10 ML VIAL IV SCH (10:00)
[2021-08-31] MEDS ORDERED: ZINC SULFATE 220 MG TABLET GT SCH (10:00)
[2021-08-31] MEDS ORDERED: ASCORBIC ACID 500 MG TABLET (FP) PEG SCH (10:00)
[2021-08-31] MEDS ORDERED: PANTOPRAZOLE 40 MG TABLET PO SCH (10:00)
[2021-08-31] MEDS: ASPIRIN 81 MG CHEWABLE TABLETS GT SCH (10:05)
[2021-08-31] MEDS: FERROUS SO4 300 MG/5 ML ORAL SOLN UNIT DOSE CUPS GT SCH (10:10)
[2021-08-31] MEDS: FAMOTIDINE 40 MG/5 ML ORAL SUSPENSION PEG SCH ×2 (10:10→23:09)
[2021-08-31] MEDS: levETIRAcetam 500 MG/5 ML ORAL SOLUTION (UNIT-DOSE CUPS) GT SCH ×2 (10:10→23:09)
[2021-08-31] MEDS: amLODIPine BESYLATE 10 MG TABLET (FP) GT SCH (10:10)
[2021-08-31] MEDS: ALBUMIN HUMAN 25% 12.5 GM/50 ML VIAL IV SCH ×2 (13:55→17:45)
[2021-08-31] MEDS ORDERED: VANCOMYCIN 1 GM in D5W (PRE-DOCKED) 1,000 MG/250 ML IVPB SCH (16:00)
[2021-09-01] MEDS ORDERED: PIPERACILLIN/TAZOB 2.25 GM 2.25 GM/50 ML BAG IVPB ONE ×2 (03:22→11:19)
[2021-09-01] MEDS: PIPERACILLIN/TAZOB 2.25 GM 2.25 GM in DEXTROSE 5%-WATER - 50 ML IVPB SCH ×3 (03:36→23:03)
[2021-09-01] MEDS: INSULIN SLIDING SCALE (NOVOLOG) 1 VIAL SQ SCH ×4 (03:36→18:11)
[2021-09-01 08:14] LABS: BASO % 0.1 % (0-2.0); EOS % 0.4 % (0-4.5); HEMATOCRIT 22.8 % (35.4-49); HEMOGLOBIN 7.6 GM/dL (11.7-16.9); LYMPH % 8.3 % (8-40); MCH 27.1 pg (25.7-33.7); MCHC 33.2 g/dl (32.0-35.9); MEAN CELL VOLUME 81.6 fl (80-96); MEAN PLT VOLUME 7.1 fl (7.5-11.1); MONO % 2.5 % (3.8-10.2); NEUT % 88.7 % (42.8-82.8); PLATELET COUNT 661 10^3/uL (134-434); RDW 15.9 % (11.9-15.9); WHITE BLOOD COUNT 17.4 K/mm3 (4.0-10.0)
[2021-09-01 08:27] LABS: CHLORIDE 94 mmol/L (98-107); SODIUM 131 mmol/L (136-145)
[2021-09-01 08:31] LABS: ALBUMIN 1.8 g/dl (3.4-5.0); ANION GAP 13 MMOL/L (8-16); CO2 24 mmol/L (21-32); GLUCOSE,RANDOM 145 mg/dL (74-106); MAGNESIUM 2.5 mg/dL (1.8-2.4)
[2021-09-01 08:34] LABS: CREATININE 3.3 mg/dL (0.55-1.3); PHOSPHOROUS 4.1 mg/dL (2.5-4.9); SGOT/AST 15 U/L (15-37); SGPT/ALT 29 U/L (13-61)
[2021-09-01 08:35] LABS: BILIRUBIN,TOTAL 0.4 mg/dL (0.2-1)
[2021-09-01 08:36] LABS: TOT PROT 5.6 g/dl (6.4-8.2)
[2021-09-01 08:38] LABS: ALK PHOS 148 U/L (45-117); BLOOD UREA NITROGEN 120.6 mg/dL (7-18)
[2021-09-01] MEDS: ASPIRIN 81 MG CHEWABLE TABLETS GT SCH (10:40)
[2021-09-01] MEDS: FAMOTIDINE 40 MG/5 ML ORAL SUSPENSION PEG SCH ×2 (10:55→23:03)
[2021-09-01] MEDS: levETIRAcetam 500 MG/5 ML ORAL SOLUTION (UNIT-DOSE CUPS) GT SCH ×2 (10:55→23:03)
[2021-09-01] MEDS: FERROUS SO4 300 MG/5 ML ORAL SOLN UNIT DOSE CUPS GT SCH (10:55)
[2021-09-01] MEDS: amLODIPine BESYLATE 10 MG TABLET (FP) GT SCH (10:55)
[2021-09-01] MEDS: ZINC SULFATE 220 MG CAPSULE (FP) GT SCH (10:55)
[2021-09-01] MEDS ORDERED: ZINC SULFATE 220 MG CAPSULE (FP) ONE (11:19)
[2021-09-01] MEDS ORDERED: ASPIRIN 81 MG CHEWABLE TABLETS ONE (11:19)
[2021-09-01] MEDS ORDERED: amLODIPine BESYLATE 10 MG TABLET (FP) ONE (11:19)
[2021-09-01] MEDS ORDERED: SODIUM CHLORIDE 1,000 ML IV SCH (11:45)
[2021-09-01] MEDS: SODIUM CHLORIDE 1,000 ML IV SCH (16:20)
[2021-09-01] MEDS: ALBUMIN HUMAN 25% 12.5 GM/50 ML VIAL IV SCH ×3 (16:20→23:04)
[2021-09-01] MEDS ORDERED: DEXTROSE 5%-WATER - 50 ML IVPB ONE (22:39)
[2021-09-01] MEDS ORDERED: PIPERACILLIN/TAZOBACTAM 2.25 GM VIAL IVPB ONE (22:39)
[2021-09-02] MEDS: INSULIN SLIDING SCALE (NOVOLOG) 1 VIAL SQ SCH ×4 (00:16→17:59)
[2021-09-02] MEDS ORDERED: PIPERACILLIN/TAZOBACTAM 2.25 GM VIAL IVPB ONE ×3 (02:27→17:43)
[2021-09-02] MEDS ORDERED: DEXTROSE 5%-WATER - 50 ML IVPB ONE ×3 (02:28→17:43)
[2021-09-02] MEDS: PIPERACILLIN/TAZOB 2.25 GM 2.25 GM in DEXTROSE 5%-WATER - 50 ML IVPB SCH ×3 (02:48→17:58)
[2021-09-02 04:58] VITALS: BMI 23.8
[2021-09-02] MEDS: SODIUM CHLORIDE 1,000 ML IV SCH ×2 (05:41→13:34)
[2021-09-02 09:31] LABS: HEMATOCRIT 20.9 % (35.4-49); MCH 27.6 pg (25.7-33.7); MCHC 33.3 g/dl (32.0-35.9); MEAN PLT VOLUME 7.3 fl (7.5-11.1); PLATELET COUNT 617 10^3/uL (134-434); RBC 2.52 M/mm3 (4.00-5.60); RDW 15.9 % (11.9-15.9); WHITE BLOOD COUNT 21.2 K/mm3 (4.0-10.0)
[2021-09-02 09:48] LABS: CHLORIDE 102 mmol/L (98-107); SODIUM 138 mmol/L (136-145)
[2021-09-02 09:50] LABS: CALCIUM 7.8 mg/dL (8.5-10.1)
[2021-09-02 09:51] LABS: ANION GAP 16 MMOL/L (8-16); CO2 20 mmol/L (21-32); GLUCOSE,RANDOM 160 mg/dL (74-106)
[2021-09-02 09:54] LABS: CREATININE 2.9 mg/dL (0.55-1.3); SGOT/AST 20 U/L (15-37); SGPT/ALT 30 U/L (13-61)
[2021-09-02 09:55] LABS: BILIRUBIN,TOTAL 0.5 mg/dL (0.2-1); TOT PROT 5.7 g/dl (6.4-8.2)
[2021-09-02 09:57] LABS: ALK PHOS 136 U/L (45-117)
[2021-09-02 09:59] LABS: ALBUMIN 2.2 g/dl (3.4-5.0); BLOOD UREA NITROGEN 112.3 mg/dL (7-18)
[2021-09-02 10:33] LABS: ANISOCYTOSIS 1+; MACROCYTOSIS 1+
[2021-09-02] MEDS: amLODIPine BESYLATE 10 MG TABLET (FP) GT SCH (11:46)
[2021-09-02] MEDS: ASPIRIN 81 MG CHEWABLE TABLETS GT SCH (11:46)
[2021-09-02] MEDS: ZINC SULFATE 220 MG CAPSULE (FP) GT SCH (11:46)
[2021-09-02] MEDS: FERROUS SO4 300 MG/5 ML ORAL SOLN UNIT DOSE CUPS GT SCH (11:46)
[2021-09-02] MEDS: levETIRAcetam 500 MG/5 ML ORAL SOLUTION (UNIT-DOSE CUPS) GT SCH (11:46)
[2021-09-02] MEDS: FAMOTIDINE 40 MG/5 ML ORAL SUSPENSION PEG SCH (14:00)
[2021-09-02] MEDS ORDERED: SODIUM CHLORIDE 1,000 ML with POTASSIUM CHLORIDE 10 MEQ IV SCH (14:30)
[2021-09-02] MEDS: FINASTERIDE 5 MG TABLET (FP) PO SCH (17:58)
[2021-09-02] MEDS: LACTATED RINGERS SOLUTION 1,000 ML/1,000 ML INFUS.BAG IV SCH (17:58)
[2021-09-03] MEDS: levETIRAcetam 500 MG/5 ML ORAL SOLUTION (UNIT-DOSE CUPS) GT SCH ×3 (00:29→21:35)
[2021-09-03] MEDS: INSULIN SLIDING SCALE (NOVOLOG) 1 VIAL SQ SCH ×5 (00:29→23:06)
[2021-09-03] MEDS: FAMOTIDINE 40 MG/5 ML ORAL SUSPENSION PEG SCH ×3 (00:29→21:34)
[2021-09-03] MEDS ORDERED: PIPERACILLIN/TAZOBACTAM 2.25 GM VIAL IVPB ONE ×3 (01:11→17:15)
[2021-09-03] MEDS ORDERED: DEXTROSE 5%-WATER - 50 ML IVPB ONE ×3 (01:12→17:15)
[2021-09-03] MEDS: PIPERACILLIN/TAZOB 2.25 GM 2.25 GM in DEXTROSE 5%-WATER - 50 ML IVPB SCH ×3 (01:25→17:16)
[2021-09-03] MEDS: ZINC SULFATE 220 MG CAPSULE (FP) GT SCH (10:01)
[2021-09-03] MEDS: ASPIRIN 81 MG CHEWABLE TABLETS GT SCH (10:01)
[2021-09-03] MEDS: FINASTERIDE 5 MG TABLET (FP) PO SCH (10:01)
[2021-09-03] MEDS: amLODIPine BESYLATE 10 MG TABLET (FP) GT SCH (10:01)
[2021-09-03] MEDS: FERROUS SO4 300 MG/5 ML ORAL SOLN UNIT DOSE CUPS GT SCH (10:02)
[2021-09-03 11:17] LABS: HEMATOCRIT 23.8 % (35.4-49); HEMOGLOBIN 7.9 GM/dL (11.7-16.9); MCHC 33.4 g/dl (32.0-35.9); MEAN CELL VOLUME 83.8 fl (80-96); PLATELET COUNT 584 10^3/uL (134-434); RBC 2.84 M/mm3 (4.00-5.60); RDW 15.9 % (11.9-15.9); WHITE BLOOD COUNT 17.1 K/mm3 (4.0-10.0)
[2021-09-03 11:56] LABS: BLOOD UREA NITROGEN 94.5 mg/dL (7-18); CALCIUM 8.1 mg/dL (8.5-10.1)
[2021-09-03 11:57] LABS: ALBUMIN 1.9 g/dl (3.4-5.0)
[2021-09-03 12:00] LABS: CREATININE 2.6 mg/dL (0.55-1.3)
[2021-09-03 12:01] LABS: BILIRUBIN,TOTAL 0.5 mg/dL (0.2-1); TOT PROT 5.4 g/dl (6.4-8.2)
[2021-09-03 12:09] LABS: ANISOCYTOSIS 1+; MACROCYTOSIS 0
[2021-09-03] MEDS: COLLAGENASE CLOSTRIDIUM HIST. 30 GRAMS TUBE TP SCH (14:00)
[2021-09-03] MEDS: LACTATED RINGERS SOLUTION 1,000 ML/1,000 ML INFUS.BAG IV SCH (14:17)
[2021-09-04] MEDS ORDERED: PIPERACILLIN/TAZOBACTAM 2.25 GM VIAL IVPB ONE ×3 (01:02→17:11)
[2021-09-04] MEDS ORDERED: DEXTROSE 5%-WATER - 50 ML IVPB ONE ×3 (01:03→17:11)
[2021-09-04] MEDS: PIPERACILLIN/TAZOB 2.25 GM 2.25 GM in DEXTROSE 5%-WATER - 50 ML IVPB SCH ×3 (01:41→17:16)
[2021-09-04] MEDS: LACTATED RINGERS SOLUTION 1,000 ML/1,000 ML INFUS.BAG IV SCH ×3 (03:50→17:18)
[2021-09-04] MEDS: INSULIN SLIDING SCALE (NOVOLOG) 1 VIAL SQ SCH ×4 (06:26→23:26)
[2021-09-04 08:56] LABS: WHITE BLOOD COUNT 17.5 K/mm3 (4.0-10.0)
[2021-09-04 08:57] LABS: HEMATOCRIT 22.4 % (35.4-49); HEMOGLOBIN 7.3 GM/dL (11.7-16.9); MCHC 32.5 g/dl (32.0-35.9); MEAN CELL VOLUME 86.1 fl (80-96); MEAN PLT VOLUME 7.3 fl (7.5-11.1); PLATELET COUNT 597 10^3/uL (134-434); RDW 15.7 % (11.9-15.9)
[2021-09-04 09:16] LABS: CHLORIDE 109 mmol/L (98-107); SODIUM 142 mmol/L (136-145)
[2021-09-04 09:19] LABS: CALCIUM 8.2 mg/dL (8.5-10.1)
[2021-09-04 09:20] LABS: ANION GAP 11 MMOL/L (8-16); BLOOD UREA NITROGEN 79.7 mg/dL (7-18); CO2 22 mmol/L (21-32)
[2021-09-04 09:23] LABS: CREATININE 2.2 mg/dL (0.55-1.3); SGOT/AST 16 U/L (15-37); SGPT/ALT 31 U/L (13-61)
[2021-09-04 09:24] LABS: TOT PROT 5.7 g/dl (6.4-8.2)
[2021-09-04 09:25] LABS: BILIRUBIN,TOTAL 0.3 mg/dL (0.2-1)
[2021-09-04 09:26] LABS: ALK PHOS 156 U/L (45-117); GLUCOSE,RANDOM 428 mg/dL (74-106)
[2021-09-04 10:55] LABS: ANISOCYTOSIS 2+; MACROCYTOSIS 1+
[2021-09-04] MEDS: ASPIRIN 81 MG CHEWABLE TABLETS GT SCH (11:23)
[2021-09-04] MEDS: FINASTERIDE 5 MG TABLET (FP) PO SCH (11:23)
[2021-09-04] MEDS: levETIRAcetam 500 MG/5 ML ORAL SOLUTION (UNIT-DOSE CUPS) GT SCH ×2 (11:23→22:18)
[2021-09-04] MEDS: FERROUS SO4 300 MG/5 ML ORAL SOLN UNIT DOSE CUPS GT SCH (11:23)
[2021-09-04] MEDS: FAMOTIDINE 40 MG/5 ML ORAL SUSPENSION PEG SCH ×2 (11:24→22:18)
[2021-09-04] MEDS: ZINC SULFATE 220 MG CAPSULE (FP) GT SCH (11:24)
[2021-09-04] MEDS: COLLAGENASE CLOSTRIDIUM HIST. 30 GRAMS TUBE TP SCH (11:24)
[2021-09-04] MEDS: amLODIPine BESYLATE 10 MG TABLET (FP) GT SCH (11:24)
[2021-09-04] MEDS ORDERED: INSULIN (LEVEMIR) 100 UNITS/ML UNITS SQ SCH (22:00)
[2021-09-05] MEDS ORDERED: PIPERACILLIN/TAZOBACTAM 2.25 GM VIAL IVPB ONE ×3 (01:13→16:58)
[2021-09-05] MEDS ORDERED: DEXTROSE 5%-WATER - 50 ML IVPB ONE ×3 (01:13→16:58)
[2021-09-05] MEDS: PIPERACILLIN/TAZOB 2.25 GM 2.25 GM in DEXTROSE 5%-WATER - 50 ML IVPB SCH ×3 (01:23→18:03)
[2021-09-05] MEDS ORDERED: BISMUTH SUBSALICYLATE 524 MG/30 ML PO PRN (01:45)
[2021-09-05] MEDS: INSULIN SLIDING SCALE (NOVOLOG) 1 VIAL SQ SCH ×3 (06:26→18:03)
[2021-09-05] MEDS: FINASTERIDE 5 MG TABLET (FP) PO SCH (10:19)
[2021-09-05] MEDS: ASPIRIN 81 MG CHEWABLE TABLETS GT SCH (10:20)
[2021-09-05] MEDS: INSULIN (LEVEMIR) 100 UNITS/ML UNITS SQ SCH ×2 (10:20→22:12)
[2021-09-05] MEDS: levETIRAcetam 500 MG/5 ML ORAL SOLUTION (UNIT-DOSE CUPS) GT SCH ×2 (10:20→22:12)
[2021-09-05] MEDS: ZINC SULFATE 220 MG CAPSULE (FP) GT SCH (10:20)
[2021-09-05] MEDS: amLODIPine BESYLATE 10 MG TABLET (FP) GT SCH (10:20)
[2021-09-05] MEDS: FERROUS SO4 300 MG/5 ML ORAL SOLN UNIT DOSE CUPS GT SCH (10:20)
[2021-09-05] MEDS: COLLAGENASE CLOSTRIDIUM HIST. 30 GRAMS TUBE TP SCH (10:22)
[2021-09-05] MEDS: FAMOTIDINE 40 MG/5 ML ORAL SUSPENSION PEG SCH ×2 (10:41→22:12)
[2021-09-05 11:14] LABS: HEMATOCRIT 27.8 % (35.4-49); HEMOGLOBIN 9.2 GM/dL (11.7-16.9); MCH 28.3 pg (25.7-33.7); MEAN CELL VOLUME 85.7 fl (80-96); MEAN PLT VOLUME 7.2 fl (7.5-11.1); PLATELET COUNT 566 10^3/uL (134-434); RBC 3.24 M/mm3 (4.00-5.60); RDW 15.3 % (11.9-15.9); WHITE BLOOD COUNT 17.4 K/mm3 (4.0-10.0)
[2021-09-05 11:41] LABS: CALCIUM 8.2 mg/dL (8.5-10.1)
[2021-09-05 11:42] LABS: BLOOD UREA NITROGEN 70.2 mg/dL (7-18)
[2021-09-05 11:45] LABS: CREATININE 1.8 mg/dL (0.55-1.3)
[2021-09-05 11:46] LABS: BILIRUBIN,TOTAL 0.3 mg/dL (0.2-1); TOT PROT 5.8 g/dl (6.4-8.2)
[2021-09-05 12:16] LABS: ANISOCYTOSIS 0; MACROCYTOSIS 0; OVALOCYTE 2+
[2021-09-06] MEDS: INSULIN SLIDING SCALE (NOVOLOG) 1 VIAL SQ SCH ×4 (00:10→17:27)
[2021-09-06] MEDS ORDERED: PIPERACILLIN/TAZOBACTAM 2.25 GM VIAL IVPB ONE ×3 (01:17→16:06)
[2021-09-06] MEDS ORDERED: DEXTROSE 5%-WATER - 50 ML IVPB ONE ×3 (01:18→16:06)
[2021-09-06] MEDS: PIPERACILLIN/TAZOB 2.25 GM 2.25 GM in DEXTROSE 5%-WATER - 50 ML IVPB SCH ×3 (01:57→17:27)
[2021-09-06] MEDS: levETIRAcetam 500 MG/5 ML ORAL SOLUTION (UNIT-DOSE CUPS) GT SCH ×2 (09:14→21:34)
[2021-09-06] MEDS: FERROUS SO4 300 MG/5 ML ORAL SOLN UNIT DOSE CUPS GT SCH (09:14)
[2021-09-06] MEDS: FAMOTIDINE 40 MG/5 ML ORAL SUSPENSION PEG SCH ×2 (09:14→21:34)
[2021-09-06] MEDS: amLODIPine BESYLATE 10 MG TABLET (FP) GT SCH (09:15)
[2021-09-06] MEDS: FINASTERIDE 5 MG TABLET (FP) PO SCH (09:15)
[2021-09-06] MEDS: COLLAGENASE CLOSTRIDIUM HIST. 30 GRAMS TUBE TP SCH (09:15)
[2021-09-06] MEDS: INSULIN (LEVEMIR) 100 UNITS/ML UNITS SQ SCH ×2 (09:15→22:14)
[2021-09-06] MEDS: ASPIRIN 81 MG CHEWABLE TABLETS GT SCH (09:15)
[2021-09-06] MEDS: ZINC SULFATE 220 MG CAPSULE (FP) GT SCH (09:15)
[2021-09-06 10:17] LABS: BLOOD UREA NITROGEN 69.4 mg/dL (7-18); CALCIUM 8.1 mg/dL (8.5-10.1)
[2021-09-06 10:21] LABS: CREATININE 1.9 mg/dL (0.55-1.3)
[2021-09-06 10:22] LABS: TOT PROT 5.9 g/dl (6.4-8.2)
[2021-09-06 10:23] LABS: BILIRUBIN,TOTAL 0.3 mg/dL (0.2-1)
[2021-09-07] MEDS ORDERED: DEXTROSE 5%-WATER - 50 ML IVPB ONE ×4 (00:17→23:31)
[2021-09-07] MEDS ORDERED: PIPERACILLIN/TAZOBACTAM 2.25 GM VIAL IVPB ONE ×4 (00:17→23:30)
[2021-09-07] MEDS: INSULIN SLIDING SCALE (NOVOLOG) 1 VIAL SQ SCH ×4 (00:35→17:49)
[2021-09-07] MEDS: PIPERACILLIN/TAZOB 2.25 GM 2.25 GM in DEXTROSE 5%-WATER - 50 ML IVPB SCH ×3 (01:29→18:01)
[2021-09-07] MEDS ORDERED: ACETAMINOPHEN 650 MG/20.3 ML ORAL SOLUTION (CUPS) GT ONE (05:53)
[2021-09-07 10:09] LABS: HEMATOCRIT 21.9 % (35.4-49); HEMOGLOBIN 7.2 GM/dL (11.7-16.9); MCH 29.3 pg (25.7-33.7); MCHC 32.9 g/dl (32.0-35.9); MEAN PLT VOLUME 7.6 fl (7.5-11.1); PLATELET COUNT 410 10^3/uL (134-434); RBC 2.46 M/mm3 (4.00-5.60); RDW 16.2 % (11.9-15.9)
[2021-09-07 10:26] LABS: CALCIUM 7.6 mg/dL (8.5-10.1)
[2021-09-07 10:27] LABS: ALBUMIN 1.6 g/dl (3.4-5.0); BLOOD UREA NITROGEN 78.5 mg/dL (7-18)
[2021-09-07 10:30] LABS: CREATININE 2.2 mg/dL (0.55-1.3)
[2021-09-07 10:31] LABS: BILIRUBIN,TOTAL 0.6 mg/dL (0.2-1)
[2021-09-07 10:32] LABS: TOT PROT 5.2 g/dl (6.4-8.2)
[2021-09-07] MEDS: FERROUS SO4 300 MG/5 ML ORAL SOLN UNIT DOSE CUPS GT SCH (10:34)
[2021-09-07] MEDS: ASPIRIN 81 MG CHEWABLE TABLETS GT SCH (10:34)
[2021-09-07] MEDS: ZINC SULFATE 220 MG CAPSULE (FP) GT SCH (10:34)
[2021-09-07] MEDS: FINASTERIDE 5 MG TABLET (FP) PO SCH (10:35)
[2021-09-07] MEDS: FAMOTIDINE 40 MG/5 ML ORAL SUSPENSION PEG SCH ×2 (10:35→22:26)
[2021-09-07] MEDS: amLODIPine BESYLATE 10 MG TABLET (FP) GT SCH (10:35)
[2021-09-07] MEDS: COLLAGENASE CLOSTRIDIUM HIST. 30 GRAMS TUBE TP SCH (10:35)
[2021-09-07] MEDS: levETIRAcetam 500 MG/5 ML ORAL SOLUTION (UNIT-DOSE CUPS) GT SCH ×2 (10:35→22:26)
[2021-09-07] MEDS: INSULIN (LEVEMIR) 100 UNITS/ML UNITS SQ SCH ×2 (10:35→22:26)
[2021-09-07 10:49] LABS: WHITE BLOOD COUNT 35.1 K/mm3 (4.0-10.0)
[2021-09-07 11:13] LABS: ANISOCYTOSIS 3+; MACROCYTOSIS 0
[2021-09-07] MEDS: SODIUM CHLORIDE 0.45% 1,000 ML IV SCH (18:05)
[2021-09-08] MEDS: INSULIN SLIDING SCALE (NOVOLOG) 1 VIAL SQ SCH ×4 (00:03→17:43)
[2021-09-08] MEDS: PIPERACILLIN/TAZOB 2.25 GM 2.25 GM in DEXTROSE 5%-WATER - 50 ML IVPB SCH ×2 (02:39→10:59)
[2021-09-08] MEDS ORDERED: PIPERACILLIN/TAZOBACTAM 2.25 GM VIAL IVPB ONE (10:52)
[2021-09-08] MEDS ORDERED: DEXTROSE 5%-WATER - 50 ML IVPB ONE (10:52)
[2021-09-08] MEDS: levETIRAcetam 500 MG/5 ML ORAL SOLUTION (UNIT-DOSE CUPS) GT SCH ×2 (10:58→21:12)
[2021-09-08] MEDS: FERROUS SO4 300 MG/5 ML ORAL SOLN UNIT DOSE CUPS GT SCH (10:58)
[2021-09-08] MEDS: FAMOTIDINE 40 MG/5 ML ORAL SUSPENSION PEG SCH ×2 (10:59→21:57)
[2021-09-08] MEDS: FINASTERIDE 5 MG TABLET (FP) PO SCH (10:59)
[2021-09-08] MEDS: ASPIRIN 81 MG CHEWABLE TABLETS GT SCH (10:59)
[2021-09-08] MEDS: amLODIPine BESYLATE 10 MG TABLET (FP) GT SCH (10:59)
[2021-09-08] MEDS: COLLAGENASE CLOSTRIDIUM HIST. 30 GRAMS TUBE TP SCH (10:59)
[2021-09-08] MEDS: ZINC SULFATE 220 MG CAPSULE (FP) GT SCH (10:59)
[2021-09-08] MEDS: INSULIN (LEVEMIR) 100 UNITS/ML UNITS SQ SCH ×2 (11:18→21:29)
[2021-09-08] MEDS ORDERED: VANCOMYCIN 1 GRAM (PRE-DOCKED) 1,000 MG/250 ML BAG IVPB ONE (12:00)
[2021-09-08] MEDS ORDERED: DEXTROSE 5%-WATER 100 ML IVPB ONE ×2 (12:02→20:38)
[2021-09-08] MEDS ORDERED: MEROPENEM 1 GM VIAL (RESTRICTED TO ID) IVPB ONE ×2 (12:02→20:38)
[2021-09-08] MEDS: MEROPENEM 1 GM in DEXTROSE 5%-WATER 100 ML IVPB SCH ×2 (12:03→21:11)
[2021-09-08 12:54] LABS: BASO % 0.2 % (0-2.0); EOS % 2.2 % (0-4.5); HEMATOCRIT 21.2 % (35.4-49); HEMOGLOBIN 7.3 GM/dL (11.7-16.9); LYMPH % 10.5 % (8-40); MCHC 34.6 g/dl (32.0-35.9); MEAN CELL VOLUME 92.5 fl (80-96); MONO % 4.5 % (3.8-10.2); NEUT % 82.6 % (42.8-82.8); PLATELET COUNT 399 10^3/uL (134-434); RBC 2.29 M/mm3 (4.00-5.60); RDW 15.9 % (11.9-15.9); WHITE BLOOD COUNT 18.5 K/mm3 (4.0-10.0)
[2021-09-08 13:18] LABS: BLOOD UREA NITROGEN 76.3 mg/dL (7-18); CALCIUM 7.8 mg/dL (8.5-10.1)
[2021-09-08 13:19] LABS: ALBUMIN 1.7 g/dl (3.4-5.0)
[2021-09-08 13:23] LABS: BILIRUBIN,TOTAL 0.7 mg/dL (0.2-1); TOT PROT 5.6 g/dl (6.4-8.2)
[2021-09-08 18:08] LABS: HIV INTERPRETATION NEGATIVE (NEGATIVE)
[2021-09-08] MEDS: SODIUM CHLORIDE 0.45% 1,000 ML IV SCH ×2 (20:00→22:24)
[2021-09-09] MEDS: INSULIN SLIDING SCALE (NOVOLOG) 1 VIAL SQ SCH ×4 (00:41→17:56)
[2021-09-09] MEDS ORDERED: MEROPENEM 1 GM VIAL (RESTRICTED TO ID) IVPB ONE ×2 (10:01→21:58)
[2021-09-09] MEDS ORDERED: DEXTROSE 5%-WATER 100 ML IVPB ONE ×2 (10:02→21:58)
[2021-09-09] MEDS: MEROPENEM 1 GM in DEXTROSE 5%-WATER 100 ML IVPB SCH ×2 (10:08→22:26)
[2021-09-09] MEDS: FINASTERIDE 5 MG TABLET (FP) PO SCH (10:09)
[2021-09-09] MEDS: amLODIPine BESYLATE 10 MG TABLET (FP) GT SCH (10:09)
[2021-09-09] MEDS: ZINC SULFATE 220 MG CAPSULE (FP) GT SCH (10:09)
[2021-09-09] MEDS: FERROUS SO4 300 MG/5 ML ORAL SOLN UNIT DOSE CUPS GT SCH (10:09)
[2021-09-09] MEDS: ASPIRIN 81 MG CHEWABLE TABLETS GT SCH (10:09)
[2021-09-09] MEDS: INSULIN (LEVEMIR) 100 UNITS/ML UNITS SQ SCH (10:09)
[2021-09-09] MEDS: levETIRAcetam 500 MG/5 ML ORAL SOLUTION (UNIT-DOSE CUPS) GT SCH ×2 (10:09→22:27)
[2021-09-09] MEDS: FAMOTIDINE 40 MG/5 ML ORAL SUSPENSION PEG SCH ×2 (10:10→22:56)
[2021-09-09] MEDS: COLLAGENASE CLOSTRIDIUM HIST. 30 GRAMS TUBE TP SCH (10:10)
[2021-09-09 10:20] LABS: BASO % 0.2 % (0-2.0); EOS % 3.1 % (0-4.5); HEMATOCRIT 22.4 % (35.4-49); HEMOGLOBIN 7.8 GM/dL (11.7-16.9); LYMPH % 12.3 % (8-40); MCH 31.3 pg (25.7-33.7); MCHC 34.9 g/dl (32.0-35.9); MEAN CELL VOLUME 89.8 fl (80-96); MEAN PLT VOLUME 7.8 fl (7.5-11.1); MONO % 7.2 % (3.8-10.2); NEUT % 77.2 % (42.8-82.8); PLATELET COUNT 450 10^3/uL (134-434); RBC 2.49 M/mm3 (4.00-5.60); RDW 16.2 % (11.9-15.9); WHITE BLOOD COUNT 12.9 K/mm3 (4.0-10.0)
[2021-09-09 10:49] LABS: ALBUMIN 1.7 g/dl (3.4-5.0)
[2021-09-09 10:52] LABS: CREATININE 1.8 mg/dL (0.55-1.3)
[2021-09-09 10:53] LABS: BILIRUBIN,TOTAL 0.4 mg/dL (0.2-1); TOT PROT 5.6 g/dl (6.4-8.2)
[2021-09-09] MEDS: SODIUM CHLORIDE 0.45% 1,000 ML IV SCH ×2 (12:49→17:55)
[2021-09-09] MEDS: SODIUM ZIRCONIUM CYCLOSILICATE (LOKELMA) 5 GM PACKET PO SCH (13:57)
[2021-09-10] MEDS: INSULIN (LEVEMIR) 100 UNITS/ML UNITS SQ SCH ×3 (00:05→22:15)
[2021-09-10] MEDS: INSULIN SLIDING SCALE (NOVOLOG) 1 VIAL SQ SCH ×4 (00:15→17:38)
[2021-09-10] MEDS ORDERED: MEROPENEM 1 GM VIAL (RESTRICTED TO ID) IVPB ONE ×2 (09:12→22:06)
[2021-09-10] MEDS ORDERED: DEXTROSE 5%-WATER 100 ML IVPB ONE ×2 (09:12→22:06)
[2021-09-10 09:22] LABS: ALBUMIN 1.7 g/dl (3.4-5.0)
[2021-09-10 09:25] LABS: CREATININE 1.7 mg/dL (0.55-1.3)
[2021-09-10 09:27] LABS: BILIRUBIN,TOTAL 0.3 mg/dL (0.2-1); TOT PROT 5.5 g/dl (6.4-8.2)
[2021-09-10] MEDS: AMINO ACIDS/PROTEIN HYDROLYS 30 ML LIQUID.PKT GT SCH (09:58)
[2021-09-10] MEDS: FERROUS SO4 300 MG/5 ML ORAL SOLN UNIT DOSE CUPS GT SCH (09:59)
[2021-09-10] MEDS: amLODIPine BESYLATE 10 MG TABLET (FP) GT SCH (09:59)
[2021-09-10] MEDS: FINASTERIDE 5 MG TABLET (FP) PO SCH (09:59)
[2021-09-10] MEDS: ZINC SULFATE 220 MG CAPSULE (FP) GT SCH (09:59)
[2021-09-10] MEDS: ASPIRIN 81 MG CHEWABLE TABLETS GT SCH (10:01)
[2021-09-10] MEDS: levETIRAcetam 500 MG/5 ML ORAL SOLUTION (UNIT-DOSE CUPS) GT SCH ×2 (10:01→22:09)
[2021-09-10] MEDS: MEROPENEM 1 GM in DEXTROSE 5%-WATER 100 ML IVPB SCH ×2 (10:01→22:08)
[2021-09-10] MEDS: FAMOTIDINE 40 MG/5 ML ORAL SUSPENSION PEG SCH ×2 (10:02→22:09)
[2021-09-10] MEDS: SODIUM ZIRCONIUM CYCLOSILICATE (LOKELMA) 5 GM PACKET PO SCH (11:38)
[2021-09-10] MEDS: SODIUM CHLORIDE 0.45% 1,000 ML IV SCH (11:42)
[2021-09-10] MEDS: COLLAGENASE CLOSTRIDIUM HIST. 30 GRAMS TUBE TP SCH (13:00)
[2021-09-11] MEDS: INSULIN SLIDING SCALE (NOVOLOG) 1 VIAL SQ SCH ×4 (00:15→17:09)
[2021-09-11] MEDS: AMINO ACIDS/PROTEIN HYDROLYS 30 ML LIQUID.PKT GT SCH (08:00)
[2021-09-11 09:06] LABS: CALCIUM 7.9 mg/dL (8.5-10.1)
[2021-09-11 09:07] LABS: ALBUMIN 1.7 g/dl (3.4-5.0); BLOOD UREA NITROGEN 55.8 mg/dL (7-18)
[2021-09-11 09:10] LABS: CREATININE 1.4 mg/dL (0.55-1.3)
[2021-09-11 09:11] LABS: BILIRUBIN,TOTAL 0.2 mg/dL (0.2-1); TOT PROT 5.3 g/dl (6.4-8.2)
[2021-09-11] MEDS ORDERED: MEROPENEM 1 GM VIAL (RESTRICTED TO ID) IVPB ONE ×2 (10:37→20:25)
[2021-09-11] MEDS ORDERED: DEXTROSE 5%-WATER 100 ML IVPB ONE ×2 (10:37→20:25)
[2021-09-11] MEDS: MEROPENEM 1 GM in DEXTROSE 5%-WATER 100 ML IVPB SCH ×2 (10:45→21:03)
[2021-09-11] MEDS: ASPIRIN 81 MG CHEWABLE TABLETS GT SCH (10:46)
[2021-09-11] MEDS: FAMOTIDINE 40 MG/5 ML ORAL SUSPENSION PEG SCH ×2 (10:46→21:03)
[2021-09-11] MEDS: amLODIPine BESYLATE 10 MG TABLET (FP) GT SCH (10:46)
[2021-09-11] MEDS: levETIRAcetam 500 MG/5 ML ORAL SOLUTION (UNIT-DOSE CUPS) GT SCH ×2 (10:46→21:03)
[2021-09-11] MEDS: ZINC SULFATE 220 MG CAPSULE (FP) GT SCH (10:46)
[2021-09-11] MEDS: FERROUS SO4 300 MG/5 ML ORAL SOLN UNIT DOSE CUPS GT SCH (10:46)
[2021-09-11] MEDS: FINASTERIDE 5 MG TABLET (FP) PO SCH (10:47)
[2021-09-11] MEDS: INSULIN (LEVEMIR) 100 UNITS/ML UNITS SQ SCH ×2 (10:59→21:05)
[2021-09-11] MEDS: SODIUM CHLORIDE 0.45% 1,000 ML IV SCH (11:00)
[2021-09-11] MEDS: COLLAGENASE CLOSTRIDIUM HIST. 30 GRAMS TUBE TP SCH (12:30)
[2021-09-11] MEDS ORDERED: DEXTROSE 50%-WATER 25 GM/50 ML DISP.SYRIN ONE (19:29)
[2021-09-11] MEDS ORDERED: DEXTROSE 50%-WATER 25 GM/50 ML DISP.SYRIN IVPUSH ONE (19:33)
[2021-09-12] MEDS: INSULIN SLIDING SCALE (NOVOLOG) 1 VIAL SQ SCH ×4 (05:13→19:21)
[2021-09-12] MEDS ORDERED: ACETAMINOPHEN 650 MG/20.3 ML ORAL SOLUTION (CUPS) GT ONE (05:51)
[2021-09-12] MEDS ORDERED: MEROPENEM 1 GM VIAL (RESTRICTED TO ID) IVPB ONE (11:02)
[2021-09-12] MEDS ORDERED: DEXTROSE 5%-WATER 100 ML IVPB ONE (11:02)
[2021-09-12] MEDS: FERROUS SO4 300 MG/5 ML ORAL SOLN UNIT DOSE CUPS GT SCH (11:11)
[2021-09-12] MEDS: levETIRAcetam 500 MG/5 ML ORAL SOLUTION (UNIT-DOSE CUPS) GT SCH ×2 (11:11→22:32)
[2021-09-12] MEDS: ZINC SULFATE 220 MG CAPSULE (FP) GT SCH (11:11)
[2021-09-12] MEDS: MEROPENEM 1 GM in DEXTROSE 5%-WATER 100 ML IVPB SCH (11:11)
[2021-09-12] MEDS: FAMOTIDINE 40 MG/5 ML ORAL SUSPENSION PEG SCH ×2 (11:12→22:32)
[2021-09-12] MEDS: FINASTERIDE 5 MG TABLET (FP) PO SCH (11:12)
[2021-09-12] MEDS: amLODIPine BESYLATE 10 MG TABLET (FP) GT SCH (11:12)
[2021-09-12] MEDS: AMINO ACIDS/PROTEIN HYDROLYS 30 ML LIQUID.PKT GT SCH (11:13)
[2021-09-12] MEDS: ASPIRIN 81 MG CHEWABLE TABLETS GT SCH (11:13)
[2021-09-12] MEDS: COLLAGENASE CLOSTRIDIUM HIST. 30 GRAMS TUBE TP SCH (11:17)
[2021-09-12] MEDS: INSULIN (LEVEMIR) 100 UNITS/ML UNITS SQ SCH ×2 (11:18→22:30)
[2021-09-12 13:50] LABS: BASO % 0.8 % (0-2.0); EOS % 0.8 % (0-4.5); HEMATOCRIT 23.3 % (35.4-49); HEMOGLOBIN 8.3 GM/dL (11.7-16.9); LYMPH % 11.5 % (8-40); MCH 32.8 pg (25.7-33.7); MCHC 35.6 g/dl (32.0-35.9); MEAN CELL VOLUME 92.1 fl (80-96); MEAN PLT VOLUME 8.1 fl (7.5-11.1); MONO % 7.3 % (3.8-10.2); NEUT % 79.6 % (42.8-82.8); PLATELET COUNT 580 10^3/uL (134-434); RBC 2.53 M/mm3 (4.00-5.60); RDW 16.6 % (11.9-15.9); WHITE BLOOD COUNT 16.8 K/mm3 (4.0-10.0)
[2021-09-12 14:15] LABS: CALCIUM 8.2 mg/dL (8.5-10.1)
[2021-09-12 14:16] LABS: ALBUMIN 1.8 g/dl (3.4-5.0); BLOOD UREA NITROGEN 59.3 mg/dL (7-18)
[2021-09-12 14:19] LABS: CREATININE 1.8 mg/dL (0.55-1.3)
[2021-09-12 14:20] LABS: BILIRUBIN,TOTAL 0.3 mg/dL (0.2-1)
[2021-09-12 14:21] LABS: TOT PROT 5.8 g/dl (6.4-8.2)
[2021-09-13] MEDS: INSULIN SLIDING SCALE (NOVOLOG) 1 VIAL SQ SCH ×4 (00:47→17:01)
[2021-09-13] MEDS: levETIRAcetam 500 MG/5 ML ORAL SOLUTION (UNIT-DOSE CUPS) GT SCH ×2 (10:24→21:41)
[2021-09-13] MEDS: ZINC SULFATE 220 MG CAPSULE (FP) GT SCH (10:25)
[2021-09-13] MEDS: FINASTERIDE 5 MG TABLET (FP) PO SCH (10:25)
[2021-09-13] MEDS: ASPIRIN 81 MG CHEWABLE TABLETS GT SCH (10:25)
[2021-09-13] MEDS: FERROUS SO4 300 MG/5 ML ORAL SOLN UNIT DOSE CUPS GT SCH (10:25)
[2021-09-13] MEDS: amLODIPine BESYLATE 10 MG TABLET (FP) GT SCH (10:25)
[2021-09-13] MEDS: AMINO ACIDS/PROTEIN HYDROLYS 30 ML LIQUID.PKT GT SCH (10:25)
[2021-09-13 10:30] LABS: CALCIUM 8.6 mg/dL (8.5-10.1)
[2021-09-13 10:31] LABS: ALBUMIN 1.9 g/dl (3.4-5.0); BLOOD UREA NITROGEN 62.5 mg/dL (7-18)
[2021-09-13 10:35] LABS: BILIRUBIN,TOTAL 0.4 mg/dL (0.2-1)
[2021-09-13] MEDS: INSULIN (LEVEMIR) 100 UNITS/ML UNITS SQ SCH ×2 (10:46→21:45)
[2021-09-13] MEDS: FAMOTIDINE 40 MG/5 ML ORAL SUSPENSION PEG SCH ×2 (12:07→21:42)
[2021-09-13] MEDS: COLLAGENASE CLOSTRIDIUM HIST. 30 GRAMS TUBE TP SCH (13:35)
[2021-09-14] MEDS: INSULIN SLIDING SCALE (NOVOLOG) 1 VIAL SQ SCH ×5 (00:44→23:54)
[2021-09-14] MEDS: AMINO ACIDS/PROTEIN HYDROLYS 30 ML LIQUID.PKT GT SCH (10:27)
[2021-09-14] MEDS: FAMOTIDINE 40 MG/5 ML ORAL SUSPENSION PEG SCH ×2 (10:27→22:23)
[2021-09-14] MEDS: FINASTERIDE 5 MG TABLET (FP) PO SCH (10:28)
[2021-09-14] MEDS: ASPIRIN 81 MG CHEWABLE TABLETS GT SCH (10:28)
[2021-09-14] MEDS: levETIRAcetam 500 MG/5 ML ORAL SOLUTION (UNIT-DOSE CUPS) GT SCH ×2 (10:28→22:19)
[2021-09-14] MEDS: FERROUS SO4 300 MG/5 ML ORAL SOLN UNIT DOSE CUPS GT SCH (10:28)
[2021-09-14] MEDS: VITAMIN B COMP W-C 1 EA TABLET (NEPHRO-VITE) PO SCH (10:28)
[2021-09-14] MEDS: ZINC SULFATE 220 MG CAPSULE (FP) GT SCH (10:28)
[2021-09-14] MEDS: amLODIPine BESYLATE 10 MG TABLET (FP) GT SCH (10:28)
[2021-09-14] MEDS: COLLAGENASE CLOSTRIDIUM HIST. 30 GRAMS TUBE TP SCH (12:30)
[2021-09-14] MEDS: NYSTATIN 100,000 UNIT/GM TOPICAL CREAM 15 GM TUBE TP SCH (22:19)
[2021-09-14] MEDS: INSULIN (LEVEMIR) 100 UNITS/ML UNITS SQ SCH (22:22)
[2021-09-15] MEDS: INSULIN SLIDING SCALE (NOVOLOG) 1 VIAL SQ SCH ×4 (05:18→23:32)
[2021-09-15] MEDS: levETIRAcetam 500 MG/5 ML ORAL SOLUTION (UNIT-DOSE CUPS) GT SCH ×2 (11:16→21:43)
[2021-09-15] MEDS: amLODIPine BESYLATE 10 MG TABLET (FP) GT SCH (11:16)
[2021-09-15] MEDS: FERROUS SO4 300 MG/5 ML ORAL SOLN UNIT DOSE CUPS GT SCH (11:16)
[2021-09-15] MEDS: FINASTERIDE 5 MG TABLET (FP) PO SCH (11:16)
[2021-09-15] MEDS: VITAMIN B COMP W-C 1 EA TABLET (NEPHRO-VITE) PO SCH (11:16)
[2021-09-15] MEDS: ZINC SULFATE 220 MG CAPSULE (FP) GT SCH (11:16)
[2021-09-15] MEDS: ASPIRIN 81 MG CHEWABLE TABLETS GT SCH (11:16)
[2021-09-15] MEDS: FAMOTIDINE 40 MG/5 ML ORAL SUSPENSION PEG SCH ×2 (11:16→21:43)
[2021-09-15] MEDS: NYSTATIN 100,000 UNIT/GM TOPICAL CREAM 15 GM TUBE TP SCH ×2 (11:16→21:42)
[2021-09-15] MEDS: AMINO ACIDS/PROTEIN HYDROLYS 30 ML LIQUID.PKT GT SCH (11:16)
[2021-09-15] MEDS: COLLAGENASE CLOSTRIDIUM HIST. 30 GRAMS TUBE TP SCH (11:17)
[2021-09-15 12:35] LABS: CALCIUM 8.5 mg/dL (8.5-10.1)
[2021-09-15 12:36] LABS: ALBUMIN 1.8 g/dl (3.4-5.0); BLOOD UREA NITROGEN 67.2 mg/dL (7-18)
[2021-09-15 12:39] LABS: CREATININE 1.9 mg/dL (0.55-1.3)
[2021-09-15 12:41] LABS: BILIRUBIN,TOTAL 0.1 mg/dL (0.2-1); TOT PROT 5.9 g/dl (6.4-8.2)
[2021-09-15] MEDS: INSULIN (LEVEMIR) 100 UNITS/ML UNITS SQ SCH (23:32)
[2021-09-16] MEDS: INSULIN SLIDING SCALE (NOVOLOG) 1 VIAL SQ SCH ×4 (05:29→23:44)
[2021-09-16] MEDS: ASPIRIN 81 MG CHEWABLE TABLETS GT SCH (10:58)
[2021-09-16] MEDS: FINASTERIDE 5 MG TABLET (FP) PO SCH (10:58)
[2021-09-16] MEDS: amLODIPine BESYLATE 10 MG TABLET (FP) GT SCH (10:59)
[2021-09-16] MEDS: AMINO ACIDS/PROTEIN HYDROLYS 30 ML LIQUID.PKT GT SCH (10:59)
[2021-09-16] MEDS: levETIRAcetam 500 MG/5 ML ORAL SOLUTION (UNIT-DOSE CUPS) GT SCH ×2 (10:59→22:19)
[2021-09-16] MEDS: VITAMIN B COMP W-C 1 EA TABLET (NEPHRO-VITE) PO SCH (10:59)
[2021-09-16] MEDS: FERROUS SO4 300 MG/5 ML ORAL SOLN UNIT DOSE CUPS GT SCH (10:59)
[2021-09-16] MEDS: ZINC SULFATE 220 MG CAPSULE (FP) GT SCH (11:00)
[2021-09-16] MEDS: FAMOTIDINE 40 MG/5 ML ORAL SUSPENSION PEG SCH ×2 (11:00→22:19)
[2021-09-16] MEDS: COLLAGENASE CLOSTRIDIUM HIST. 30 GRAMS TUBE TP SCH (12:17)
[2021-09-16] MEDS: NYSTATIN 100,000 UNIT/GM TOPICAL CREAM 15 GM TUBE TP SCH ×2 (12:17→22:19)
[2021-09-16] MEDS: INSULIN (LEVEMIR) 100 UNITS/ML UNITS SQ SCH (23:43)
[2021-09-17] MEDS: INSULIN SLIDING SCALE (NOVOLOG) 1 VIAL SQ SCH ×2 (06:29→13:34)
[2021-09-17 10:00] LABS: BLOOD UREA NITROGEN 55.4 mg/dL (7-18); CALCIUM 8.6 mg/dL (8.5-10.1)
[2021-09-17 10:02] LABS: CREATININE 1.5 mg/dL (0.55-1.3)
[2021-09-17] MEDS: AMINO ACIDS/PROTEIN HYDROLYS 30 ML LIQUID.PKT GT SCH (12:18)
[2021-09-17] MEDS: amLODIPine BESYLATE 10 MG TABLET (FP) GT SCH (12:19)
[2021-09-17] MEDS: FINASTERIDE 5 MG TABLET (FP) PO SCH (12:19)
[2021-09-17] MEDS: VITAMIN B COMP W-C 1 EA TABLET (NEPHRO-VITE) PO SCH (12:19)
[2021-09-17] MEDS: FERROUS SO4 300 MG/5 ML ORAL SOLN UNIT DOSE CUPS GT SCH (12:19)
[2021-09-17] MEDS: ASPIRIN 81 MG CHEWABLE TABLETS GT SCH (12:19)
[2021-09-17] MEDS: FAMOTIDINE 40 MG/5 ML ORAL SUSPENSION PEG SCH (12:19)
[2021-09-17] MEDS: NYSTATIN 100,000 UNIT/GM TOPICAL CREAM 15 GM TUBE TP SCH (12:20)
[2021-09-17] MEDS: ZINC SULFATE 220 MG CAPSULE (FP) GT SCH (12:20)
[2021-09-17] MEDS: levETIRAcetam 500 MG/5 ML ORAL SOLUTION (UNIT-DOSE CUPS) GT SCH (12:20)
[2021-09-17] MEDS: COLLAGENASE CLOSTRIDIUM HIST. 30 GRAMS TUBE TP SCH (12:20)
[2021-09-17 13:35] VITALS: BP 140/68; PULSE 94; TEMP 98.4
== END 2021-09-17 16:30 | DRG 698 ==
LOC: JER 13:58 → JERBED 16:32 → J5S 09-01 18:24
PROVIDERS: ADMIT Hospitalist; ATTEND Family Medicine
PROC: 5A1955Z Respiratory Ventilation, Greater than 96 Consecutive Hours (ICD-10-PCS; principal; 2021-08-30)
PROC: 30233N1 Transfusion of Nonautologous Red Blood Cells into Peripheral Vein, Percutaneous Approach (ICD-10-PCS; 2021-08-30)
DX: T83.511A Infection and inflammatory reaction due to indwelling urethral catheter, initial encounter (principal); L89.013 Pressure ulcer of right elbow, stage 3; L89.153 Pressure ulcer of sacral region, stage 3; L89.523 Pressure ulcer of left ankle, stage 3; L89.513 Pressure ulcer of right ankle, stage 3; A41.51 Sepsis due to Escherichia coli [E. coli]; N17.9 Acute kidney failure, unspecified; E87.1 Hypo-osmolality and hyponatremia; E87.2 Acidosis; J96.12 Chronic respiratory failure with hypercapnia; I69.351 Hemiplegia and hemiparesis following cerebral infarction affecting right dominant side; J96.11 Chronic respiratory failure with hypoxia; G93.1 Anoxic brain damage, not elsewhere classified; N39.0 Urinary tract infection, site not specified; K21.9 Gastro-esophageal reflux disease without esophagitis; E78.5 Hyperlipidemia, unspecified; D50.9 Iron deficiency anemia, unspecified; N13.9 Obstructive and reflux uropathy, unspecified; D69.6 Thrombocytopenia, unspecified; R00.0 Tachycardia, unspecified; I95.9 Hypotension, unspecified; E87.5 Hyperkalemia; R31.0 Gross hematuria; B96.20 Unspecified Escherichia coli [E. coli] as the cause of diseases classified elsewhere; E11.65 Type 2 diabetes mellitus with hyperglycemia; N31.9 Neuromuscular dysfunction of bladder, unspecified; G40.909 Epilepsy, unspecified, not intractable, without status epilepticus; I12.9 Hypertensive chronic kidney disease with stage 1 through stage 4 chronic kidney disease, or unspecified chronic kidney disease; E11.22 Type 2 diabetes mellitus with diabetic chronic kidney disease; N18.9 Chronic kidney disease, unspecified; Z99.81 Dependence on supplemental oxygen; Y84.8 Other medical procedures as the cause of abnormal reaction of the patient, or of later complication, without mention of misadventure at the time of the procedure
CPT/HCPCS: 0241U-QW; 36415; 36430; 71045-TC-FY; 74176-TC; 80048; 80053; 80177; 81003; 82010; 82550; 82553; 82803; 82962; 83605; 83735; 84100; 84484; 85025; 85610; 85730; 86593; 86780; 86850; 86900; 86901; 86922; 87040; 87070; 87086; 87186; 87205; 87324; 87340; 87389; 87449; 87522; 93005; 93010; 94002; 99285-25; C9803-CS; E0372; P9047; P9058; U0003; U0005

== ENCOUNTER 2021-09-24 13:21 | Inpatient (IN) | payer OTHER ==
[2021-09-24 16:43] LABS: HEMATOCRIT 22.1 % (35.4-49); HEMOGLOBIN 7.2 GM/dL (11.7-16.9); MCH 27.8 pg (25.7-33.7); MCHC 32.7 g/dl (32.0-35.9); MEAN PLT VOLUME 7.3 fl (7.5-11.1); MONO % 6.6 % (3.8-10.2); NEUT % 73.4 % (42.8-82.8); PLATELET COUNT 634 10^3/uL (134-434); RDW 15.5 % (11.9-15.9); WHITE BLOOD COUNT 18.5 K/mm3 (4.0-10.0)
[2021-09-24 16:50] LABS: INR 1.11 (0.83-1.09); PROTHROMBIN TIME (PATIENT) 12.8 SEC (9.7-13.0)
[2021-09-24 16:52] LABS: ACTIVATED PTT 29.7 SECONDS (25.2-36.5)
[2021-09-24 17:13] LABS: CALCIUM 8.6 mg/dL (8.5-10.1)
[2021-09-24 17:14] LABS: ALBUMIN 2.2 g/dl (3.4-5.0); BLOOD UREA NITROGEN 53.5 mg/dL (7-18)
[2021-09-24 17:17] LABS: CREATININE 1.5 mg/dL (0.55-1.3)
[2021-09-24 17:19] LABS: BILIRUBIN,TOTAL 0.2 mg/dL (0.2-1); TOT PROT 6.9 g/dl (6.4-8.2)
[2021-09-25 02:36] LABS: EPI CELLS 16 /uL (0-25.1); HYALINE CASTS 5 /uL (0-3.1); URINE APPEARANCE TURBID; URINE BACTERIA 220 /uL (0-1359); URINE BILIRUBIN NEGATIVE (NEGATIVE); URINE COLOR YELLOW; URINE GLUCOSE (UA) NEGATIVE (NEGATIVE); URINE KETONE NEGATIVE (NEGATIVE); URINE LEUK ESTERASE 3+ (NEGATIVE); URINE NITRITE NEGATIVE (NEGATIVE); URINE PROTEIN 2+ (NEGATIVE); URINE RBC 570 /uL (0-23.9); URINE UROBILINOGEN 0.2 mg/dL (0.2-1.0); URINE WBC 4291 /uL (0-25.8)
[2021-09-25 08:07] LABS: YEAST NONE SEEN (NEGATIVE)
[2021-09-25 09:46] LABS: BLOOD UREA NITROGEN 48.8 mg/dL (7-18)
[2021-09-25 09:47] LABS: ALBUMIN 2.1 g/dl (3.4-5.0)
[2021-09-25 09:50] LABS: CREATININE 1.5 mg/dL (0.55-1.3)
[2021-09-25 09:52] LABS: BASO % 0.5 % (0-2.0); BILIRUBIN,TOTAL 0.3 mg/dL (0.2-1); EOS % 0.8 % (0-4.5); HEMATOCRIT 23.4 % (35.4-49); HEMOGLOBIN 7.7 GM/dL (11.7-16.9); LYMPH % 16.7 % (8-40); MCH 28.2 pg (25.7-33.7); MCHC 33.1 g/dl (32.0-35.9); MEAN CELL VOLUME 85.2 fl (80-96); MEAN PLT VOLUME 7.4 fl (7.5-11.1); MONO % 7.4 % (3.8-10.2); NEUT % 74.6 % (42.8-82.8); PLATELET COUNT 603 10^3/uL (134-434); RBC 2.75 M/mm3 (4.00-5.60); RDW 15.1 % (11.9-15.9); TOT PROT 6.8 g/dl (6.4-8.2); WHITE BLOOD COUNT 18.9 K/mm3 (4.0-10.0)
[2021-09-25] MEDS ORDERED: FUROSEMIDE 40 MG/4 ML INJECTABLE VIAL IVPUSH SCH (10:17)
[2021-09-25] MEDS ORDERED: FUROSEMIDE 40 MG/4 ML INJECTABLE VIAL ONE (10:30)
[2021-09-25] MEDS: levETIRAcetam 500 MG/5 ML ORAL SOLUTION (UNIT-DOSE CUPS) GT SCH (23:16)
[2021-09-26] MEDS ORDERED: ACETAMINOPHEN 1000 MG/100 ML BAG IVPB ONE (01:30)
[2021-09-26] MEDS ORDERED: INSULIN SLIDING SCALE (NOVOLOG) 1 VIAL SQ SCH (08:45)
[2021-09-26] MEDS ORDERED: FAMOTIDINE 40 MG/5 ML ORAL SUSPENSION GT SCH (10:00)
[2021-09-26 11:15] LABS: CALCIUM 8.9 mg/dL (8.5-10.1)
[2021-09-26 11:16] LABS: ALBUMIN 2.1 g/dl (3.4-5.0)
[2021-09-26 11:19] LABS: CREATININE 1.6 mg/dL (0.55-1.3)
[2021-09-26 11:20] LABS: BILIRUBIN,TOTAL 0.3 mg/dL (0.2-1); TOT PROT 7.1 g/dl (6.4-8.2)
[2021-09-26 11:29] LABS: HEMATOCRIT 26.6 % (35.4-49); HEMOGLOBIN 8.8 GM/dL (11.7-16.9); MCH 29.5 pg (25.7-33.7); MCHC 33.2 g/dl (32.0-35.9); MEAN CELL VOLUME 88.9 fl (80-96); MEAN PLT VOLUME 8.2 fl (7.5-11.1); PLATELET COUNT 436 10^3/uL (134-434); RBC 2.99 M/mm3 (4.00-5.60); RDW 15.1 % (11.9-15.9)
[2021-09-26 11:30] LABS: WHITE BLOOD COUNT 25.8 K/mm3 (4.0-10.0)
[2021-09-26] MEDS: levETIRAcetam 500 MG/5 ML ORAL SOLUTION (UNIT-DOSE CUPS) GT SCH ×3 (11:53→21:48)
[2021-09-26] MEDS ORDERED: INSULIN SLIDING SCALE (NOVOLOG) 1 VIAL SQ ONE (12:02)
[2021-09-26 12:26] VITALS: BMI 21.9
[2021-09-26 12:33] LABS: ANISOCYTOSIS 2+; MACROCYTOSIS 0; OVALOCYTE 1+
[2021-09-26] MEDS: VITAMIN B COMP W-C 1 EA TABLET (NEPHRO-VITE) GT SCH (12:42)
[2021-09-26] MEDS: amLODIPine BESYLATE 10 MG TABLET (FP) GT SCH (12:42)
[2021-09-26] MEDS: ASPIRIN 81 MG CHEWABLE TABLETS GT SCH (12:42)
[2021-09-26] MEDS: FERROUS SO4 300 MG/5 ML ORAL SOLN UNIT DOSE CUPS GT SCH (12:42)
[2021-09-26] MEDS: NYSTATIN 100,000 UNIT/GM TOPICAL CREAM 15 GM TUBE TP SCH ×2 (12:43→21:48)
[2021-09-26] MEDS: FAMOTIDINE 40 MG/5 ML ORAL SUSPENSION GT SCH ×2 (15:25→21:47)
[2021-09-26] MEDS: COLLAGENASE CLOSTRIDIUM HIST. 30 GRAMS TUBE TP SCH (15:25)
[2021-09-26] MEDS ORDERED: DEXTROSE 5%-WATER - 50 ML IVPB ONE (19:00)
[2021-09-26] MEDS ORDERED: PIPERACILLIN/TAZOBACTAM 3.375 GM VIAL IVPB ONE (19:00)
[2021-09-26] MEDS: PIPERACILLIN/TAZOB 3.375 GM 3.375 GM in DEXTROSE 5%-WATER - 50 ML IVPB SCH (19:05)
[2021-09-26] MEDS: AMINO ACIDS/PROTEIN HYDROLYS 30 ML LIQUID.PKT GT SCH (19:05)
[2021-09-26] MEDS: INSULIN SLIDING SCALE (NOVOLOG) 1 VIAL SQ SCH ×2 (19:40→21:58)
[2021-09-26 20:55] LABS: EPI CELLS 5 /uL (0-25.1); HYALINE CASTS 6 /uL (0-3.1); URINE APPEARANCE CLOUDY; URINE BACTERIA 532 /uL (0-1359); URINE BILIRUBIN NEGATIVE (NEGATIVE); URINE COLOR YELLOW; URINE GLUCOSE (UA) NEGATIVE (NEGATIVE); URINE KETONE NEGATIVE (NEGATIVE); URINE LEUK ESTERASE 3+ (NEGATIVE); URINE NITRITE NEGATIVE (NEGATIVE); URINE PROTEIN 2+ (NEGATIVE); URINE RBC 188 /uL (0-23.9); URINE UROBILINOGEN 0.2 mg/dL (0.2-1.0); URINE WBC 2864 /uL (0-25.8)
[2021-09-26] MEDS: INSULIN (LEVEMIR) 100 UNITS/ML UNITS SQ SCH (21:48)
[2021-09-27] MEDS ORDERED: PIPERACILLIN/TAZOBACTAM 3.375 GM VIAL IVPB ONE ×3 (01:14→17:23)
[2021-09-27] MEDS ORDERED: DEXTROSE 5%-WATER - 50 ML IVPB ONE ×3 (01:15→17:23)
[2021-09-27] MEDS: PIPERACILLIN/TAZOB 3.375 GM 3.375 GM in DEXTROSE 5%-WATER - 50 ML IVPB SCH ×3 (01:52→17:40)
[2021-09-27] MEDS: INSULIN SLIDING SCALE (NOVOLOG) 1 VIAL SQ SCH ×4 (06:03→21:35)
[2021-09-27] MEDS: INSULIN (LEVEMIR) 100 UNITS/ML UNITS SQ SCH ×2 (06:07→21:35)
[2021-09-27] MEDS ORDERED: AMINO ACIDS/PROTEIN HYDROLYS 30 ML LIQUID.PKT GT SCH (08:00)
[2021-09-27] MEDS: AMINO ACIDS/PROTEIN HYDROLYS 30 ML LIQUID.PKT GT SCH ×2 (08:23→16:36)
[2021-09-27] MEDS: FAMOTIDINE 40 MG/5 ML ORAL SUSPENSION GT SCH ×2 (09:33→21:38)
[2021-09-27] MEDS: FERROUS SO4 300 MG/5 ML ORAL SOLN UNIT DOSE CUPS GT SCH (09:33)
[2021-09-27] MEDS: VITAMIN B COMP W-C 1 EA TABLET (NEPHRO-VITE) GT SCH (09:33)
[2021-09-27] MEDS: levETIRAcetam 500 MG/5 ML ORAL SOLUTION (UNIT-DOSE CUPS) GT SCH ×2 (09:33→21:35)
[2021-09-27] MEDS: amLODIPine BESYLATE 10 MG TABLET (FP) GT SCH (09:33)
[2021-09-27] MEDS: ASPIRIN 81 MG CHEWABLE TABLETS GT SCH (09:34)
[2021-09-27] MEDS: COLLAGENASE CLOSTRIDIUM HIST. 30 GRAMS TUBE TP SCH (09:34)
[2021-09-27] MEDS: NYSTATIN 100,000 UNIT/GM TOPICAL CREAM 15 GM TUBE TP SCH ×2 (09:34→21:35)
[2021-09-28] MEDS ORDERED: DEXTROSE 5%-WATER - 50 ML IVPB ONE ×2 (01:34→10:23)
[2021-09-28] MEDS ORDERED: PIPERACILLIN/TAZOBACTAM 3.375 GM VIAL IVPB ONE ×2 (01:34→10:23)
[2021-09-28] MEDS: PIPERACILLIN/TAZOB 3.375 GM 3.375 GM in DEXTROSE 5%-WATER - 50 ML IVPB SCH ×3 (02:02→18:52)
[2021-09-28] MEDS: INSULIN SLIDING SCALE (NOVOLOG) 1 VIAL SQ SCH ×3 (06:05→16:53)
[2021-09-28] MEDS: INSULIN (LEVEMIR) 100 UNITS/ML UNITS SQ SCH (06:05)
[2021-09-28] MEDS: AMINO ACIDS/PROTEIN HYDROLYS 30 ML LIQUID.PKT GT SCH ×2 (10:34→16:47)
[2021-09-28] MEDS: VITAMIN B COMP W-C 1 EA TABLET (NEPHRO-VITE) GT SCH (10:34)
[2021-09-28] MEDS: COLLAGENASE CLOSTRIDIUM HIST. 30 GRAMS TUBE TP SCH (10:34)
[2021-09-28] MEDS: amLODIPine BESYLATE 10 MG TABLET (FP) GT SCH (10:34)
[2021-09-28] MEDS: levETIRAcetam 500 MG/5 ML ORAL SOLUTION (UNIT-DOSE CUPS) GT SCH ×2 (10:34→21:54)
[2021-09-28] MEDS: ASPIRIN 81 MG CHEWABLE TABLETS GT SCH (10:34)
[2021-09-28] MEDS: NYSTATIN 100,000 UNIT/GM TOPICAL CREAM 15 GM TUBE TP SCH ×2 (10:34→21:54)
[2021-09-28] MEDS: FERROUS SO4 300 MG/5 ML ORAL SOLN UNIT DOSE CUPS GT SCH (10:34)
[2021-09-28] MEDS: FAMOTIDINE 40 MG/5 ML ORAL SUSPENSION GT SCH (10:34)
[2021-09-28] MEDS ORDERED: DOXAZOSIN MESYLATE 1 MG TABLET GT SCH (10:45)
[2021-09-28] MEDS: FINASTERIDE 5 MG TABLET (FP) PO SCH ×2 (11:04→21:53)
[2021-09-28] MEDS: SCOPOLAMINE HYDROBROMIDE 1 PATCH PATCH.TD72 TD SCH (21:54)
[2021-09-28] MEDS: MORPHINE SULFATE/0.9% NACL/PF 100 MG/100 ML BAG IVPB SCH (22:14)
[2021-09-29 09:40] LABS: BASO % 0.5 % (0-2.0); EOS % 4.1 % (0-4.5); HEMATOCRIT 26.6 % (35.4-49); HEMOGLOBIN 8.8 GM/dL (11.7-16.9); LYMPH % 23.9 % (8-40); MCH 28.9 pg (25.7-33.7); MEAN CELL VOLUME 87.7 fl (80-96); MEAN PLT VOLUME 7.6 fl (7.5-11.1); MONO % 7.9 % (3.8-10.2); NEUT % 63.6 % (42.8-82.8); PLATELET COUNT 467 10^3/uL (134-434); RBC 3.03 M/mm3 (4.00-5.60); WHITE BLOOD COUNT 13.8 K/mm3 (4.0-10.0)
[2021-09-29 09:55] LABS: CALCIUM 8.7 mg/dL (8.5-10.1)
[2021-09-29 09:56] LABS: BLOOD UREA NITROGEN 49.8 mg/dL (7-18)
[2021-09-29 09:59] LABS: CREATININE 1.6 mg/dL (0.55-1.3)
[2021-09-29 10:00] LABS: BILIRUBIN,TOTAL 0.2 mg/dL (0.2-1)
[2021-09-29 10:01] LABS: TOT PROT 6.6 g/dl (6.4-8.2)
[2021-09-29] MEDS: NYSTATIN 100,000 UNIT/GM TOPICAL CREAM 15 GM TUBE TP SCH ×2 (10:24→23:13)
[2021-09-29] MEDS: levETIRAcetam 500 MG/5 ML ORAL SOLUTION (UNIT-DOSE CUPS) GT SCH ×2 (10:24→22:08)
[2021-09-29] MEDS: MORPHINE SULFATE/0.9% NACL/PF 100 MG/100 ML BAG IVPB SCH (19:34)
[2021-09-30] MEDS: NYSTATIN 100,000 UNIT/GM TOPICAL CREAM 15 GM TUBE TP SCH ×2 (10:46→21:25)
[2021-09-30] MEDS: levETIRAcetam 500 MG/5 ML ORAL SOLUTION (UNIT-DOSE CUPS) GT SCH ×2 (10:46→21:25)
[2021-09-30] MEDS ORDERED: MORPHINE SULFATE/0.9% NACL/PF 100 MG/100 ML BAG IVPB SCH (19:45)
[2021-10-01] MEDS: levETIRAcetam 500 MG/5 ML ORAL SOLUTION (UNIT-DOSE CUPS) GT SCH ×2 (10:35→21:04)
[2021-10-01] MEDS: NYSTATIN 100,000 UNIT/GM TOPICAL CREAM 15 GM TUBE TP SCH ×2 (10:35→21:04)
[2021-10-01] MEDS: SCOPOLAMINE HYDROBROMIDE 1 PATCH PATCH.TD72 TD SCH (21:04)
[2021-10-02] MEDS: levETIRAcetam 500 MG/5 ML ORAL SOLUTION (UNIT-DOSE CUPS) GT SCH ×2 (10:37→21:40)
[2021-10-02] MEDS: NYSTATIN 100,000 UNIT/GM TOPICAL CREAM 15 GM TUBE TP SCH ×2 (10:37→21:40)
[2021-10-02] MEDS: LORazepam 2 MG/ML SDV VIAL IVPB PRN (13:50)
[2021-10-02] MEDS: MORPHINE SULFATE/0.9% NACL/PF 100 MG/100 ML BAG IVPB SCH ×2 (13:52→15:45)
[2021-10-03] MEDS: levETIRAcetam 500 MG/5 ML ORAL SOLUTION (UNIT-DOSE CUPS) GT SCH ×2 (10:38→21:43)
[2021-10-03] MEDS: NYSTATIN 100,000 UNIT/GM TOPICAL CREAM 15 GM TUBE TP SCH ×2 (13:14→22:27)
[2021-10-03] MEDS: MORPHINE SULFATE/0.9% NACL/PF 100 MG/100 ML BAG IVPB SCH (18:36)
[2021-10-03] MEDS: LORazepam 2 MG/ML SDV VIAL IVPB PRN (21:43)
[2021-10-04] MEDS: levETIRAcetam 500 MG/5 ML ORAL SOLUTION (UNIT-DOSE CUPS) GT SCH ×2 (11:37→21:42)
[2021-10-04] MEDS: NYSTATIN 100,000 UNIT/GM TOPICAL CREAM 15 GM TUBE TP SCH ×2 (11:38→21:42)
[2021-10-04] MEDS: MORPHINE SULFATE/0.9% NACL/PF 100 MG/100 ML BAG IVPB SCH (18:49)
[2021-10-04] MEDS: SCOPOLAMINE HYDROBROMIDE 1 PATCH PATCH.TD72 TD SCH (18:49)
[2021-10-05] MEDS: NYSTATIN 100,000 UNIT/GM TOPICAL CREAM 15 GM TUBE TP SCH ×2 (11:37→21:37)
[2021-10-05] MEDS: levETIRAcetam 500 MG/5 ML ORAL SOLUTION (UNIT-DOSE CUPS) GT SCH ×2 (11:37→21:37)
[2021-10-05] MEDS: MORPHINE SULFATE/0.9% NACL/PF 100 MG/100 ML BAG IVPB SCH (18:32)
[2021-10-06] MEDS ORDERED: ACETAMINOPHEN 650 MG/20.3 ML ORAL SOLUTION (CUPS) GT ONE (05:24)
[2021-10-06] MEDS: levETIRAcetam 500 MG/5 ML ORAL SOLUTION (UNIT-DOSE CUPS) GT SCH ×2 (11:47→21:04)
[2021-10-06] MEDS: NYSTATIN 100,000 UNIT/GM TOPICAL CREAM 15 GM TUBE TP SCH ×2 (11:48→21:06)
[2021-10-06] MEDS: MORPHINE SULFATE/0.9% NACL/PF 100 MG/100 ML BAG IVPB SCH (19:56)
[2021-10-06] MEDS: ACETAMINOPHEN 650 MG/20.3 ML ORAL SOLUTION (CUPS) GT PRN (21:04)
[2021-10-07] MEDS: ACETAMINOPHEN 650 MG/20.3 ML ORAL SOLUTION (CUPS) GT PRN (06:47)
[2021-10-07] MEDS: NYSTATIN 100,000 UNIT/GM TOPICAL CREAM 15 GM TUBE TP SCH ×2 (11:00→21:46)
[2021-10-07] MEDS: levETIRAcetam 500 MG/5 ML ORAL SOLUTION (UNIT-DOSE CUPS) GT SCH ×2 (13:32→21:46)
[2021-10-07] MEDS: MORPHINE SULFATE/0.9% NACL/PF 100 MG/100 ML BAG IVPB SCH (20:43)
[2021-10-07] MEDS: SCOPOLAMINE HYDROBROMIDE 1 PATCH PATCH.TD72 TD SCH (20:48)
[2021-10-08] MEDS: levETIRAcetam 500 MG/5 ML ORAL SOLUTION (UNIT-DOSE CUPS) GT SCH (10:22)
[2021-10-08] MEDS: NYSTATIN 100,000 UNIT/GM TOPICAL CREAM 15 GM TUBE TP SCH (10:22)
[2021-10-08 13:28] VITALS: BP 96/56; PULSE 107; RESP 16; TEMP 98.2
== END 2021-10-08 03:05 | DRG 811 ==
LOC: JER 13:21 → JERBED 17:51 → INTOOBSV 17:51 → J5S 09-26 01:20 → OBSVTOIN 09-29 10:18
PROVIDERS: ADMIT Internal Medicine; ATTEND Family Medicine
PROC: 30233N1 Transfusion of Nonautologous Red Blood Cells into Peripheral Vein, Percutaneous Approach (ICD-10-PCS; principal; 2021-10-03)
PROC: 5A1955Z Respiratory Ventilation, Greater than 96 Consecutive Hours (ICD-10-PCS; 2021-10-03)
DX: D64.9 Anemia, unspecified (principal); L89.613 Pressure ulcer of right heel, stage 3; R53.2 Functional quadriplegia; G93.1 Anoxic brain damage, not elsewhere classified; N39.0 Urinary tract infection, site not specified; J96.11 Chronic respiratory failure with hypoxia; J96.12 Chronic respiratory failure with hypercapnia; N17.9 Acute kidney failure, unspecified; I12.9 Hypertensive chronic kidney disease with stage 1 through stage 4 chronic kidney disease, or unspecified chronic kidney disease; E11.22 Type 2 diabetes mellitus with diabetic chronic kidney disease; N18.9 Chronic kidney disease, unspecified; E78.5 Hyperlipidemia, unspecified; K21.9 Gastro-esophageal reflux disease without esophagitis; B96.5 Pseudomonas (aeruginosa) (mallei) (pseudomallei) as the cause of diseases classified elsewhere; N31.9 Neuromuscular dysfunction of bladder, unspecified; G40.909 Epilepsy, unspecified, not intractable, without status epilepticus; L89.896 Pressure-induced deep tissue damage of other site; L89.020 Pressure ulcer of left elbow, unstageable; L89.520 Pressure ulcer of left ankle, unstageable; L89.150 Pressure ulcer of sacral region, unstageable; Z86.73 Personal history of transient ischemic attack (TIA), and cerebral infarction without residual deficits; Z93.0 Tracheostomy status; Z66 Do not resuscitate; Z99.81 Dependence on supplemental oxygen
CPT/HCPCS: 36415; 36430; 71045-TC-FY; 80053; 81003; 82272; 82962; 85025; 85610; 85730; 86850; 86900; 86901; 86922; 87040; 87070; 87086; 87186; 87207; 94002; 99285-25; C9803-CS; G0378; P9058; U0003; U0005